=== PATIENT | female | born 1975 | race African-American/Black ===

== ENCOUNTER 2018-08-25 11:28 | Outpatient (CLI) | payer MEDICAID ==
--- NOTE | 2018-08-25 13:45 | RAD ---
KUB AND UPRIGHT: HISTORY: Left-sided abdominal pain. FINDINGS: The bowel gas pattern appears nonobstructed. No free air. No radiopaque calculi or any significant bony findings. IMPRESSION: No acute findings. POS: [facility]
== END 2018-08-25 11:29 | disposition home or self-care (01) ==
LOC: BICRAD 11:28
PROVIDERS: ATTEND Family Medicine
DX: R10.9 Unspecified abdominal pain (principal)
CPT/HCPCS: 74019

== ENCOUNTER 2019-09-25 12:02 | Outpatient (CLI) | payer OTHER | END 2019-09-25 12:03 | disposition home or self-care (01) | LOC: ULT 12:02 | PROVIDERS: ATTEND Internal Medicine | DX: I50.20 Unspecified systolic (congestive) heart failure (principal) | CPT/HCPCS: 93306 ==

== ENCOUNTER 2020-08-13 10:32 | Outpatient (CLI) | payer OTHER ==
--- NOTE | 2020-08-13 11:24 | MMO ---
Bilateral MAMMO Bilat Screen [facility]DI. CLINICAL HISTORY: Patient is 45 years old and is seen for screening. The patient has no family history of breast cancer. The patient has no personal history of cancer. VIEWS: The views performed were: bilateral craniocaudal and bilateral mediolateral oblique. FILMS COMPARED: The present examination has been compared to a prior imaging study performed at [facility] on 05/11/2019. This study has been interpreted with the assistance of computer-aided detection. MAMMOGRAM FINDINGS: There are scattered fibroglandular densities. There are no suspicious masses, suspicious calcifications, or new areas of architectural distortion. IMPRESSION: THERE IS NO MAMMOGRAPHIC EVIDENCE OF MALIGNANCY. A ROUTINE FOLLOW-UP MAMMOGRAM IN 1 YEAR IS RECOMMENDED. ACR BI-RADS Category 1 - Negative MAMMOGRAPHY NOTE: 1. A negative mammogram report should not delay a biopsy if a dominant of clinically suspicious mass is present. 2. Approximately 10% to 15% of breast cancers are not detected by mammography. 3. Adenosis and dense breasts may obscure an underlying neoplasm. Reported by: DHARMESH CARROLL MD Electonically Signed: [id number]
== END 2020-08-13 10:33 | disposition home or self-care (01) ==
LOC: BICMAMMO 10:32
PROVIDERS: ATTEND Family Medicine
DX: Z12.31 Encounter for screening mammogram for malignant neoplasm of breast (principal)
CPT/HCPCS: 77067

== ENCOUNTER 2020-08-13 10:41 | Outpatient (CLI) | payer OTHER ==
--- NOTE | 2020-08-13 11:48 | ULT ---
EXAM: Transabdominal and transvaginal pelvic ultrasound with Doppler PROVIDED CLINICAL HISTORY: Dysmenorrhea COMPARISON: None FINDINGS: The uterus measures approximately 9.7 x 5.7 x 4.1 cm and demonstrates a possible 1.8 cm anterior fibr oid, with an otherwise normal sonographic appearance. Uterine endometrial thickness is measurement. Right ovary measures approximately 2.9 x 2.8 x 2.4 cm and demonstrates a normal sonographic appearanc e. Left ovary measures approximately 2.5 x 2.1 x 1.9 cm and demonstrates a normal sonographic appearance . Grayscale and color Doppler sonography with spectral analysis of the ovarian waveforms demonstrates n ormal flow bilaterally. There is no evidence for free pelvic fluid. IMPRESSION: Possible small fibroid. Otherwise unremarkable study.
== END 2020-08-13 10:42 | disposition home or self-care (01) ==
LOC: BICULT 10:41
PROVIDERS: ATTEND Family Medicine
DX: N94.6 Dysmenorrhea, unspecified (principal); N93.9 Abnormal uterine and vaginal bleeding, unspecified
CPT/HCPCS: 76856

== ENCOUNTER 2021-01-29 07:29 | Day surgery (SDC) | payer OTHER ==
[2021-01-28 10:49] VITALS: BMI 38.4
[2021-01-29] MEDS ORDERED: Ketamine 50 MG/ML (10ML VIAL) ONE (09:49)
[2021-01-29] MEDS ORDERED: Glycopyrrolate 0.2 MG/ML 5 ML SYRINGE ONE (09:53)
[2021-01-29] MEDS ORDERED: Dexamethasone 20 MG/5 ML VIAL ONE (09:53)
[2021-01-29] MEDS ORDERED: PROPOFOL 200 MG/20 ML VIAL ONE (09:53)
[2021-01-29] MEDS ORDERED: Ondansetron PF 4 MG/2 ML Vial ONE (09:53)
[2021-01-29] MEDS ORDERED: Promethazine HCl 25 MG/ML VIAL ONE (10:11)
== END 2021-01-29 11:38 | disposition home or self-care (01) ==
LOC: SDC 07:29
PROVIDERS: ATTEND Internal Medicine
PROC: 0D748ZZ Dilation of Esophagogastric Junction, Via Natural or Artificial Opening Endoscopic (ICD-10-PCS; principal; 2021-01-29)
DX: K22.2 Esophageal obstruction (principal); K44.9 Diaphragmatic hernia without obstruction or gangrene; R68.81 Early satiety; I11.0 Hypertensive heart disease with heart failure; I50.9 Heart failure, unspecified; E11.9 Type 2 diabetes mellitus without complications; I25.2 Old myocardial infarction; E78.00 Pure hypercholesterolemia, unspecified; G47.30 Sleep apnea, unspecified; F17.210 Nicotine dependence, cigarettes, uncomplicated; E66.3 Overweight; Z68.39 Body mass index [BMI] 39.0-39.9, adult; Z79.4 Long term (current) use of insulin; Z79.82 Long term (current) use of aspirin; Z79.899 Other long term (current) drug therapy; Z86.73 Personal history of transient ischemic attack (TIA), and cerebral infarction without residual deficits; Z88.2 Allergy status to sulfonamides; Z95.5 Presence of coronary angioplasty implant and graft; Z95.810 Presence of automatic (implantable) cardiac defibrillator
CPT/HCPCS: J1100; J2405; J2550; J2704

== ENCOUNTER 2022-09-01 15:18 | Observation (INO) | payer OTHER ==
[2022-09-01 15:47] LABS: #Eosinphils 0.4 thou/uL (0.0-0.7); #Lymphocytes 2.9 thou/uL (1.20-3.40); #Monocytes 0.5 thou/uL (0.11-0.59); #Neutrophils 5.1 thou/uL (1.40-6.50); %Basophils 0.3 % (0.0-1.0); %Eosinophils 4.1 % (0.0-10.0); %Lymphocytes 32.5 % (21.0-51.0); %Monocytes 5.6 % (0.0-10.0); %Neutrophils 57.5 % (42.0-75.0); Hemoglobin 13.4 g/dL (12.0-16.0); Mean Corpuscular HGB CONC 34.1 g/dL (32.0-36.0); Mean Corpuscular Hemoglobin 30.8 pg (27.0-31.0); Mean Corpuscular Volume 90.2 fl (78.0-98.0); Mean Platelet Volume 7.7 fL (7.4-10.4); Platelet Count 337 10x3/uL (130-400); RBC Distribution Width 12.6 % (11.5-14.5); Red Blood Cell (RBC) Count 4.36 mill/uL (4.20-5.40); White Blood Cell (WBC) Count 8.9 10x3/uL (4.8-10.8)
[2022-09-01 16:09] LABS: ALT (SGPT) 11 U/L (8-55); AST (SGOT) 12 U/L (5-34); Alkaline Phosphatase 124 U/L (40-110); Anion Gap 14 mmol/L (10-20); BUN (Urea Nitrogen) 17 mg/dL (7.0-18.7); Bilirubin, Total 0.3 mg/dL (0.2-1.2); Calc. Creatinine Clearance 0 mL/min (70-130); Calcium 9.5 mg/dL (7.8-10.44); Carbon Dioxide 28 mmol/L (22-29); Chloride 102 mmol/L (98-107); Estimated GFR 64; Globulin 3.1 g/dL (2.4-3.5); Glucose 259 mg/dL (70-105); Lipase 48 U/L (8-78); Potassium 4.7 mmol/L (3.5-5.1); Protein, Total 7.1 g/dL (6.0-8.3); Sodium 139 mmol/L (136-145)
[2022-09-01] MEDS ORDERED: Nitroglycerin 0.4 MG TAB (25 Tab Bottle) SL PRN (19:04)
[2022-09-01] MEDS ORDERED: Ondansetron PF 4 MG/2 ML Vial IVP PRN (19:04)
[2022-09-01] MEDS ORDERED: Ondansetron ODT 4 MG TAB PO PRN (19:04)
[2022-09-01] MEDS ORDERED: HumaLOG 300 UNITS/3 ML VIAL SC PRN ×2 (19:04)
[2022-09-01] MEDS ORDERED: Acetaminophen 325 MG TAB PO PRN (19:04)
[2022-09-01] MEDS ORDERED: Dextrose 50% Abboject 50 ML SYRINGE SLOW IVP PRN (19:04)
[2022-09-01] MEDS ORDERED: Dextrose 5% in Water 1,000 ML IV PRN (19:04)
[2022-09-01 20:46] LABS: Troponin I 0.025 ng/mL (< 0.028)
[2022-09-01 20:49] VITALS: BMI 36.9
[2022-09-01 23:31] LABS: Troponin I 0.024 ng/mL (< 0.028)
[2022-09-02 04:03] LABS: #Basophils 0.1 thou/uL (0.0-0.2); #Eosinphils 0.4 thou/uL (0.0-0.7); #Lymphocytes 3.3 thou/uL (1.20-3.40); #Monocytes 0.7 thou/uL (0.11-0.59); #Neutrophils 6.4 thou/uL (1.40-6.50); %Basophils 1.2 % (0.0-1.0); %Eosinophils 3.2 % (0.0-10.0); %Lymphocytes 30.5 % (21.0-51.0); %Monocytes 6.1 % (0.0-10.0); %Neutrophils 58.9 % (42.0-75.0); Hemoglobin 13.5 g/dL (12.0-16.0); Mean Corpuscular HGB CONC 33.2 g/dL (32.0-36.0); Mean Corpuscular Hemoglobin 30.3 pg (27.0-31.0); Mean Corpuscular Volume 91.2 fl (78.0-98.0); Mean Platelet Volume 7.8 fL (7.4-10.4); Platelet Count 338 10x3/uL (130-400); RBC Distribution Width 12.6 % (11.5-14.5); Red Blood Cell (RBC) Count 4.46 mill/uL (4.20-5.40); White Blood Cell (WBC) Count 10.8 10x3/uL (4.8-10.8)
[2022-09-02 04:26] LABS: ALT (SGPT) 11 U/L (8-55); AST (SGOT) 12 U/L (5-34); Alkaline Phosphatase 120 U/L (40-110); Anion Gap 14 mmol/L (10-20); BUN (Urea Nitrogen) 16 mg/dL (7.0-18.7); Bilirubin, Total 0.3 mg/dL (0.2-1.2); Calc. Creatinine Clearance 91 mL/min (70-130); Calcium 9.6 mg/dL (7.8-10.44); Carbon Dioxide 27 mmol/L (22-29); Cardiac Risk 2.6 (Less than 4.5); Chloride 99 mmol/L (98-107); Cholesterol 118 mg/dl (< 200 Desired); Estimated GFR 61; Globulin 3.5 g/dL (2.4-3.5); Glucose 204 mg/dL (70-105); HDL Cholesterol 45 mg/dL (>60 Neg Risk); LDL Cholesterol, Calculated 34 mg/dL; Potassium 3.8 mmol/L (3.5-5.1); Protein, Total 7.5 g/dL (6.0-8.3); Sodium 136 mmol/L (136-145); Triglycerides 194 mg/dL (Less than 150)
[2022-09-02] MEDS ORDERED: Sodium Chloride 0.9% 1,000 ML IV SCH (05:15)
[2022-09-02] MEDS ORDERED: Aspirin Chewable 81 MG TAB PO SCH (09:00)
[2022-09-02] MEDS ORDERED: Sacubitril 49 MG/Valsartan 51 MG TABLET PO SCH (09:00)
[2022-09-02] MEDS ORDERED: Clopidogrel Bisulfate 75 MG TAB PO SCH (09:00)
[2022-09-02] MEDS ORDERED: Insulin Glargine 30 UNITS/0.3 ML VIAL SC SCH (09:00)
[2022-09-02] MEDS ORDERED: Regadenoson 0.4 MG/5 ML SYRINGE ONE (14:47)
[2022-09-02 17:11] VITALS: BP 119/70; TEMP 97.7
[2022-09-02] MEDS: Carvedilol 25 MG TAB PO SCH ×2 (17:13→18:46)
[2022-09-02] MEDS ORDERED: Atorvastatin Calcium 40 MG TAB PO SCH (21:00)
== END 2022-09-02 18:15 | disposition home or self-care (01) ==
LOC: ERS 15:18 → 2NO 18:24
PROVIDERS: ADMIT Internal Medicine; ATTEND Internal Medicine
DX: R07.9 Chest pain, unspecified (principal); E78.1 Pure hyperglyceridemia; I25.2 Old myocardial infarction; I25.10 Atherosclerotic heart disease of native coronary artery without angina pectoris; I11.0 Hypertensive heart disease with heart failure; I50.20 Unspecified systolic (congestive) heart failure; J44.9 Chronic obstructive pulmonary disease, unspecified; F12.10 Cannabis abuse, uncomplicated; F17.210 Nicotine dependence, cigarettes, uncomplicated; I25.5 Ischemic cardiomyopathy; E11.40 Type 2 diabetes mellitus with diabetic neuropathy, unspecified; E11.51 Type 2 diabetes mellitus with diabetic peripheral angiopathy without gangrene; Z86.73 Personal history of transient ischemic attack (TIA), and cerebral infarction without residual deficits; Z79.02 Long term (current) use of antithrombotics/antiplatelets; Z79.4 Long term (current) use of insulin; Z79.82 Long term (current) use of aspirin; Z79.899 Other long term (current) drug therapy; Z88.2 Allergy status to sulfonamides; Z95.5 Presence of coronary angioplasty implant and graft; Z95.810 Presence of automatic (implantable) cardiac defibrillator; Z89.422 Acquired absence of other left toe(s); Z20.822 Contact with and (suspected) exposure to COVID-19
CPT/HCPCS: 36415; 36416; 71045; 78452; 80053; 80061; 83690; 84484; 85025; 93005; 93017; 93306; A9500; G0378; J2785; J7050; U0003; U0005

== ENCOUNTER 2022-09-21 06:35 | Day surgery (SDC) | payer OTHER ==
[2022-09-17 15:59] VITALS: BMI 36.6
[2022-09-21] MEDS ORDERED: ePHEDrine 50 MG/ML VIAL ONE (08:58)
[2022-09-21] MEDS ORDERED: Glycopyrrolate 0.2 MG/ML 5 ML SYRINGE ONE (08:58)
[2022-09-21] MEDS ORDERED: Ondansetron PF 4 MG/2 ML Vial ONE (08:58)
[2022-09-21] MEDS ORDERED: Succinylcholine Chloride 100 MG/5 ML SYRINGE FS ONE (08:58)
[2022-09-21] MEDS ORDERED: PROPOFOL 200 MG/20 ML VIAL ONE (08:58)
[2022-09-21] MEDS ORDERED: Dexamethasone 20 MG/5 ML VIAL ONE (08:58)
== END 2022-09-21 11:14 | disposition home or self-care (01) ==
LOC: SDC 06:35
PROVIDERS: ATTEND Internal Medicine
PROC: 0DBN8ZX Excision of Sigmoid Colon, Via Natural or Artificial Opening Endoscopic, Diagnostic (ICD-10-PCS; principal; 2022-09-21)
PROC: 0D758ZZ Dilation of Esophagus, Via Natural or Artificial Opening Endoscopic (ICD-10-PCS; principal; 2022-09-21)
DX: D12.5 Benign neoplasm of sigmoid colon (principal); K59.02 Outlet dysfunction constipation; R13.10 Dysphagia, unspecified; K21.9 Gastro-esophageal reflux disease without esophagitis; E11.43 Type 2 diabetes mellitus with diabetic autonomic (poly)neuropathy; K31.84 Gastroparesis; I11.0 Hypertensive heart disease with heart failure; I50.9 Heart failure, unspecified; I25.2 Old myocardial infarction; E78.00 Pure hypercholesterolemia, unspecified; F17.210 Nicotine dependence, cigarettes, uncomplicated; E66.3 Overweight; Z68.38 Body mass index [BMI] 38.0-38.9, adult; Z86.73 Personal history of transient ischemic attack (TIA), and cerebral infarction without residual deficits; Z79.02 Long term (current) use of antithrombotics/antiplatelets; Z79.4 Long term (current) use of insulin; Z79.82 Long term (current) use of aspirin; Z79.85 Long-term (current) use of injectable non-insulin antidiabetic drugs; Z79.899 Other long term (current) drug therapy; Z88.2 Allergy status to sulfonamides; Z95.5 Presence of coronary angioplasty implant and graft; Z95.810 Presence of automatic (implantable) cardiac defibrillator
CPT/HCPCS: 36416; 88305; J1100; J2405; J2704; J3490

== ENCOUNTER 2023-06-04 03:59 | Inpatient (IN) | payer OTHER ==
[2023-06-04 05:20] LABS: #Eosinphils 0.2 thou/uL (0.0-0.7); #Monocytes 0.6 thou/uL (0.11-0.59); #Neutrophils 8.2 thou/uL (1.40-6.50); %Basophils 0.4 % (0.0-1.0); %Eosinophils 2.1 % (0.0-10.0); %Lymphocytes 17.5 % (21.0-51.0); %Neutrophils 74.7 % (42.0-75.0); Hematocrit 35.6 % (36.0-47.0); Hemoglobin 11.2 g/dL (12.0-16.0); Mean Corpuscular HGB CONC 31.5 g/dL (32.0-36.0); Mean Corpuscular Volume 85.8 fl (78.0-98.0); Mean Platelet Volume 9.9 fL (7.4-10.4); Platelet Count 327 10x3/uL (130-400); RBC Distribution Width 15.4 % (11.5-14.5); Red Blood Cell (RBC) Count 4.15 mill/uL (4.20-5.40)
[2023-06-04] MEDS ORDERED: Ketorolac Tromethamine 30 MG/ML VIAL ONE (05:26)
[2023-06-04 05:43] LABS: ALT (SGPT) 7 U/L (8-55); AST (SGOT) 12 U/L (5-34); Albumin 4.1 g/dL (3.5-5.0); Alkaline Phosphatase 101 U/L (40-110); Anion Gap 14 mmol/L (10-20); BUN (Urea Nitrogen) 13 mg/dL (7.0-18.7); Bilirubin, Total 0.3 mg/dL (0.2-1.2); Calc. Creatinine Clearance 0 mL/min (70-130); Calcium 8.9 mg/dL (7.8-10.44); Carbon Dioxide 20 mmol/L (22-29); Chloride 103 mmol/L (98-107); Estimated GFR 71; Globulin 2.7 g/dL (2.4-3.5); Glucose 312 mg/dL (70-105); Potassium 3.7 mmol/L (3.5-5.1); Protein, Total 6.8 g/dL (6.0-8.3); Sodium 133 mmol/L (136-145)
[2023-06-04 05:47] LABS: Troponin I 0.108 ng/mL (< 0.028)
[2023-06-04] MEDS ORDERED: Aspirin Chewable 81 MG TAB ONE (06:13)
[2023-06-04] MEDS ORDERED: Ondansetron PF 4 MG/2 ML Vial IVP PRN (06:55)
[2023-06-04] MEDS ORDERED: Ondansetron ODT 4 MG TAB PO PRN (06:55)
[2023-06-04] MEDS ORDERED: Acetaminophen 325 MG TAB PO PRN (07:49)
[2023-06-04] MEDS ORDERED: Dextrose 50% Abboject 50 ML SYRINGE SLOW IVP PRN (07:49)
[2023-06-04] MEDS ORDERED: Glucagon 1 MG/ML KIT IM PRN (07:49)
[2023-06-04] MEDS ORDERED: Nitroglycerin 0.4 MG TAB (25 Tab Bottle) SL PRN (07:49)
[2023-06-04] MEDS ORDERED: Dextrose 5% in Water 1,000 ML IV PRN (07:49)
[2023-06-04] MEDS ORDERED: Famotidine 20 MG TAB ONE (09:00)
[2023-06-04] MEDS ORDERED: Clopidogrel Bisulfate 75 MG TAB PO SCH (09:00)
[2023-06-04] MEDS ORDERED: Clopidogrel Bisulfate 75 MG TAB ONE (09:00)
[2023-06-04] MEDS ORDERED: Carvedilol 6.25 MG TAB ONE (09:00)
[2023-06-04] MEDS: Carvedilol 6.25 MG TAB PO SCH ×2 (09:04→17:53)
[2023-06-04] MEDS: Famotidine 20 MG TAB PO SCH ×2 (09:05→21:46)
[2023-06-04 09:18] LABS: Troponin I 0.157 ng/mL (< 0.028)
[2023-06-04] MEDS ORDERED: Sacubitril 49 MG/Valsartan 51 MG TABLET PO SCH (22:00)
[2023-06-05 05:06] LABS: #Eosinphils 0.3 thou/uL (0.0-0.7); #Monocytes 0.6 thou/uL (0.11-0.59); #Neutrophils 4.7 thou/uL (1.40-6.50); %Basophils 0.2 % (0.0-1.0); %Eosinophils 3.5 % (0.0-10.0); %Lymphocytes 36.7 % (21.0-51.0); %Monocytes 6.6 % (0.0-10.0); %Neutrophils 52.8 % (42.0-75.0); Hematocrit 36.3 % (36.0-47.0); Hemoglobin 11.1 g/dL (12.0-16.0); Mean Corpuscular HGB CONC 30.6 g/dL (32.0-36.0); Mean Corpuscular Hemoglobin 26.1 pg (27.0-31.0); Mean Corpuscular Volume 85.2 fl (78.0-98.0); Mean Platelet Volume 10.2 fL (7.4-10.4); Platelet Count 321 10x3/uL (130-400); RBC Distribution Width 15.4 % (11.5-14.5); Red Blood Cell (RBC) Count 4.26 mill/uL (4.20-5.40); White Blood Cell (WBC) Count 8.8 10x3/uL (4.8-10.8)
[2023-06-05 05:45] LABS: Anion Gap 13 mmol/L (10-20); BUN (Urea Nitrogen) 17 mg/dL (7.0-18.7); Calc. Creatinine Clearance 107 mL/min (70-130); Carbon Dioxide 25 mmol/L (22-29); Chloride 104 mmol/L (98-107); Estimated GFR 70; Glucose 163 mg/dL (70-105); Potassium 3.5 mmol/L (3.5-5.1); Sodium 138 mmol/L (136-145)
[2023-06-05] MEDS ORDERED: Communication Order-Pharmacy FS SCH (09:30)
[2023-06-05] MEDS: Sacubitril 49 MG/Valsartan 51 MG TABLET PO SCH ×2 (10:01→21:35)
[2023-06-05] MEDS: Aspirin Chewable 81 MG TAB PO SCH (10:01)
[2023-06-05] MEDS: Empagliflozin 25 MG TAB PO SCH (10:01)
[2023-06-05] MEDS: Carvedilol 6.25 MG TAB PO SCH ×2 (10:13→16:08)
[2023-06-05] MEDS: Famotidine 20 MG TAB PO SCH ×2 (10:14→21:36)
[2023-06-05] MEDS: Insulin Regular 300 UNITS/3 ML VIAL SC PRN ×2 (15:58→21:37)
[2023-06-05] MEDS: Bumetanide 1 MG TAB PO SCH (16:08)
[2023-06-05] MEDS ORDERED: Non-Formulary Item 1 EACH (Carvedilol [Coreg] 12.5 MG Tab) PO SCH (17:00)
[2023-06-05] MEDS ORDERED: Non-Formulary Item 1 EACH (Potassium Chloride [Potassium Chloride] 20 MEQ Tablet.Er) PO SCH (21:00)
[2023-06-05] MEDS ORDERED: BUMETANIDE PO SCH (21:00)
[2023-06-05] MEDS: Potassium Chloride 20 MEQ TAB PO SCH (21:36)
[2023-06-05] MEDS: Atorvastatin Calcium 40 MG TAB PO SCH (21:36)
[2023-06-05] MEDS: Gabapentin 100 MG CAP PO SCH (21:37)
[2023-06-06] MEDS: Sacubitril 49 MG/Valsartan 51 MG TABLET PO SCH ×2 (08:00→20:58)
[2023-06-06] MEDS: Spironolactone 25 MG TAB PO SCH (08:00)
[2023-06-06] MEDS: Potassium Chloride 20 MEQ TAB PO SCH ×2 (08:00→20:58)
[2023-06-06] MEDS: Empagliflozin 25 MG TAB PO SCH (08:00)
[2023-06-06] MEDS: Bumetanide 1 MG TAB PO SCH ×2 (08:00→16:11)
[2023-06-06] MEDS: Aspirin Chewable 81 MG TAB PO SCH (08:00)
[2023-06-06] MEDS: Famotidine 20 MG TAB PO SCH ×2 (08:00→20:58)
[2023-06-06] MEDS: Carvedilol 6.25 MG TAB PO SCH ×2 (08:00→16:11)
[2023-06-06 10:56] LABS: #Eosinphils 0.2 thou/uL (0.0-0.7); #Monocytes 0.4 thou/uL (0.11-0.59); #Neutrophils 4.3 thou/uL (1.40-6.50); %Basophils 0.4 % (0.0-1.0); %Eosinophils 2.5 % (0.0-10.0); %Lymphocytes 31.7 % (21.0-51.0); %Monocytes 5.9 % (0.0-10.0); %Neutrophils 59.2 % (42.0-75.0); Hematocrit 36.9 % (36.0-47.0); Hemoglobin 11.6 g/dL (12.0-16.0); Mean Corpuscular HGB CONC 31.4 g/dL (32.0-36.0); Mean Corpuscular Hemoglobin 26.6 pg (27.0-31.0); Mean Corpuscular Volume 84.6 fl (78.0-98.0); Platelet Count 349 10x3/uL (130-400); RBC Distribution Width 15.2 % (11.5-14.5); Red Blood Cell (RBC) Count 4.36 mill/uL (4.20-5.40); White Blood Cell (WBC) Count 7.3 10x3/uL (4.8-10.8)
[2023-06-06 11:24] LABS: Anion Gap 15 mmol/L (10-20); BUN (Urea Nitrogen) 16 mg/dL (7.0-18.7); Calc. Creatinine Clearance 126 mL/min (70-130); Calcium 8.8 mg/dL (7.8-10.44); Carbon Dioxide 23 mmol/L (22-29); Chloride 104 mmol/L (98-107); Estimated GFR 84; Glucose 151 mg/dL (70-105); Magnesium 2.2 mg/dL (1.6-2.6); Potassium 3.9 mmol/L (3.5-5.1); Sodium 138 mmol/L (136-145)
[2023-06-06] MEDS ORDERED: Lidocaine 1% (PF) 30 ML VIAL ONE (11:29)
[2023-06-06] MEDS ORDERED: Heparin 10,000 UNITS/ 10 ML VIAL ONE (11:29)
[2023-06-06] MEDS ORDERED: Adenosine 6 MG/2 ML VIAL ONE (11:35)
[2023-06-06] MEDS ORDERED: Verapamil 5 MG/2 ML VIAL ONE (11:36)
[2023-06-06] MEDS ORDERED: Nitroglycerin 50 MG/250 ML BOT 0 ML ONE (11:36)
[2023-06-06] MEDS ORDERED: fentaNYL 50 mcg/mL 1 mL Vial ONE (12:16)
[2023-06-06] MEDS ORDERED: Midazolam HCl 2 mg/2 ml Vial ONE (12:16)
[2023-06-06] MEDS ORDERED: Nitroglycerin 0.4 MG TAB (25 Tab Bottle) SL PRN (14:38)
[2023-06-06] MEDS ORDERED: Acetaminophen/Codeine 30-300mg Tablet PO PRN ×2 (14:38)
[2023-06-06] MEDS ORDERED: Sodium Chloride 0.9% 1,000 ML IV SCH (14:38)
[2023-06-06] MEDS ORDERED: Sodium Chloride 0.9% 200 ML IV PRN (14:38)
[2023-06-06] MEDS: Atorvastatin Calcium 40 MG TAB PO SCH (20:58)
[2023-06-06] MEDS: Gabapentin 100 MG CAP PO SCH (20:58)
[2023-06-07] MEDS: Bumetanide 1 MG TAB PO SCH ×2 (09:55→15:59)
[2023-06-07] MEDS: Spironolactone 25 MG TAB PO SCH (09:56)
[2023-06-07] MEDS: Sacubitril 49 MG/Valsartan 51 MG TABLET PO SCH ×2 (09:56→21:59)
[2023-06-07] MEDS: Potassium Chloride 20 MEQ TAB PO SCH ×2 (09:56→22:00)
[2023-06-07] MEDS: Empagliflozin 25 MG TAB PO SCH (09:57)
[2023-06-07] MEDS: Aspirin Chewable 81 MG TAB PO SCH (09:57)
[2023-06-07] MEDS: Famotidine 20 MG TAB PO SCH ×2 (09:57→21:59)
[2023-06-07] MEDS: Carvedilol 6.25 MG TAB PO SCH ×2 (09:58→16:50)
[2023-06-07] MEDS: Insulin Regular 300 UNITS/3 ML VIAL SC PRN ×2 (16:51→22:21)
[2023-06-07] MEDS: Atorvastatin Calcium 40 MG TAB PO SCH (21:59)
[2023-06-07] MEDS: Gabapentin 100 MG CAP PO SCH (22:00)
[2023-06-08] MEDS: Insulin Regular 300 UNITS/3 ML VIAL SC PRN ×4 (06:06→21:17)
[2023-06-08] MEDS: Bumetanide 1 MG TAB PO SCH ×2 (09:18→16:33)
[2023-06-08] MEDS: Famotidine 20 MG TAB PO SCH ×2 (09:18→20:17)
[2023-06-08] MEDS: Spironolactone 25 MG TAB PO SCH (09:18)
[2023-06-08] MEDS: Potassium Chloride 20 MEQ TAB PO SCH ×2 (09:18→20:17)
[2023-06-08] MEDS: Empagliflozin 25 MG TAB PO SCH (09:18)
[2023-06-08] MEDS: Sacubitril 49 MG/Valsartan 51 MG TABLET PO SCH ×2 (09:19→20:17)
[2023-06-08] MEDS: Aspirin Chewable 81 MG TAB PO SCH (09:19)
[2023-06-08] MEDS: Carvedilol 6.25 MG TAB PO SCH ×2 (09:19→16:32)
[2023-06-08] MEDS ORDERED: Zolpidem Tartrate 5 MG TAB PO PRN (20:11)
[2023-06-08] MEDS ORDERED: Lorazepam 0.5 MG TAB PO PRN (20:12)
[2023-06-08] MEDS: Atorvastatin Calcium 40 MG TAB PO SCH (20:17)
[2023-06-08] MEDS: Gabapentin 100 MG CAP PO SCH (20:25)
[2023-06-09] MEDS: Insulin Regular 300 UNITS/3 ML VIAL SC PRN ×3 (05:22→20:53)
[2023-06-09] MEDS ORDERED: Communication Order-Pharmacy FS ONE (05:56)
[2023-06-09] MEDS: Carvedilol 6.25 MG TAB PO SCH ×2 (09:02→16:45)
[2023-06-09] MEDS: Sacubitril 24MG/Valsartan 26 MG TAB PO SCH ×2 (09:02→20:52)
[2023-06-09] MEDS: Bumetanide 1 MG TAB PO SCH (09:02)
[2023-06-09] MEDS ORDERED: Communication Order-Pharmacy FS SCH (17:45)
[2023-06-09] MEDS ORDERED: Gabapentin 100 MG CAP PO SCH (21:00)
[2023-06-09] MEDS ORDERED: Famotidine 20 MG TAB PO SCH (21:00)
[2023-06-09] MEDS ORDERED: Atorvastatin Calcium 40 MG TAB PO SCH (21:00)
[2023-06-10] MEDS ORDERED: CEFAZOLIN 2 GM in Sodium Chloride 0.9% 100 ML IVPB SCH (03:45)
[2023-06-10 04:41] LABS: #Eosinphils 0.2 thou/uL (0.0-0.7); #Monocytes 0.7 thou/uL (0.11-0.59); #Neutrophils 4.7 thou/uL (1.40-6.50); %Basophils 0.4 % (0.0-1.0); %Eosinophils 2.2 % (0.0-10.0); %Lymphocytes 31.9 % (21.0-51.0); %Monocytes 8.4 % (0.0-10.0); %Neutrophils 56.9 % (42.0-75.0); Hematocrit 36.5 % (36.0-47.0); Hemoglobin 11.2 g/dL (12.0-16.0); Mean Corpuscular HGB CONC 30.7 g/dL (32.0-36.0); Mean Corpuscular Hemoglobin 26.4 pg (27.0-31.0); Mean Corpuscular Volume 86.1 fl (78.0-98.0); Mean Platelet Volume 10.2 fL (7.4-10.4); Platelet Count 300 10x3/uL (130-400); RBC Distribution Width 15.6 % (11.5-14.5); Red Blood Cell (RBC) Count 4.24 mill/uL (4.20-5.40); White Blood Cell (WBC) Count 8.3 10x3/uL (4.8-10.8)
[2023-06-10] MEDS: Carvedilol 6.25 MG TAB PO SCH (05:02)
[2023-06-10] MEDS: Sacubitril 24MG/Valsartan 26 MG TAB PO SCH (05:02)
[2023-06-10 05:13] LABS: ALT (SGPT) 18 U/L (8-55); AST (SGOT) 14 U/L (5-34); Albumin 3.8 g/dL (3.5-5.0); Alkaline Phosphatase 92 U/L (40-110); Anion Gap 13 mmol/L (10-20); BUN (Urea Nitrogen) 23 mg/dL (7.0-18.7); Bilirubin, Total 0.5 mg/dL (0.2-1.2); Calc. Creatinine Clearance 95 mL/min (70-130); Calcium 8.6 mg/dL (7.8-10.44); Carbon Dioxide 26 mmol/L (22-29); Cardiac Risk 3.3 (Less than 4.5); Chloride 102 mmol/L (98-107); Cholesterol 87 mg/dl (< 200 Desired); Estimated GFR 65; Globulin 2.8 g/dL (2.4-3.5); Glucose 171 mg/dL (70-105); HDL Cholesterol 26 mg/dL (>60 Neg Risk); LDL Cholesterol, Calculated 40 mg/dL; Potassium 4.1 mmol/L (3.5-5.1); Protein, Total 6.6 g/dL (6.0-8.3); Sodium 137 mmol/L (136-145); Triglycerides 106 mg/dL (Less than 150)
[2023-06-10] MEDS ORDERED: Albumin 5% 0 ML ONE (06:42)
[2023-06-10] MEDS ORDERED: Lidocaine 1% MPF 2 ML VIAL ONE (09:15)
[2023-06-10] MEDS ORDERED: Norepinephrine 4 MG/4 ML VIAL ONE (09:19)
[2023-06-10] MEDS ORDERED: Lidocaine 2% PF 100 mg/5 ml Syringe ONE ×2 (09:19→09:53)
[2023-06-10] MEDS ORDERED: fentaNYL PF 100 MCG/2 ML SYRINGE ONE (09:19)
[2023-06-10] MEDS ORDERED: PROPOFOL 20 ML ONE (09:19)
[2023-06-10] MEDS ORDERED: Rocuronium Bromide 10 MG/ML (10ML VIAL) ONE ×2 (09:19→09:53)
[2023-06-10] MEDS ORDERED: Dexmedetomidine 200 MCG/2 ML VIAL ONE (09:29)
[2023-06-10] MEDS ORDERED: Midazolam HCl 2 mg/2 ml Vial ONE (09:36)
[2023-06-10] MEDS ORDERED: Milrinone 10 MG/10 ML VIAL ONE (09:43)
[2023-06-10] MEDS ORDERED: Heparin 5,000 UNITS/ML VIAL ONE (09:53)
[2023-06-10] MEDS ORDERED: Mannitol 12.5 GM/50 ML ONE (09:53)
[2023-06-10] MEDS ORDERED: Heparin 30,000 units/30 ml VIAL ONE (09:53)
[2023-06-10] MEDS ORDERED: Potassium Chloride 60 MEQ/30 ML VIAL ONE (09:53)
[2023-06-10] MEDS ORDERED: Aminocaproic Acid 5 GM/20 ML VIAL ONE (09:53)
[2023-06-10] MEDS ORDERED: Magnesium 5 GM/10 ML VIAL ONE (09:53)
[2023-06-10] MEDS ORDERED: Protamine Sulfate 250 MG/25 ML VIAL ONE (09:53)
[2023-06-10] MEDS ORDERED: Calcium Chloride 1 GM/10 ML Abboject SYRINGE ONE (09:53)
[2023-06-10] MEDS ORDERED: Vancomycin 1 GM VIAL ONE (09:53)
[2023-06-10] MEDS ORDERED: Lidocaine 1% PF 5 ML VIAL ONE (09:53)
[2023-06-10] MEDS ORDERED: Thrombin 5000 UNITS/5 ML VIAL ONE (09:53)
[2023-06-10] MEDS ORDERED: Papaverine 60 MG/2 ML VIAL ONE (09:53)
[2023-06-10] MEDS ORDERED: Cardioplegic Soln 1,000 ML BAG ONE (09:53)
[2023-06-10] MEDS ORDERED: PROPOFOL 200 MG/20 ML VIAL ONE (09:53)
[2023-06-10] MEDS ORDERED: Sodium Bicarb 50 MEQ/50 ML VIAL ONE (09:53)
[2023-06-10] MEDS ORDERED: Insulin Regular 300 UNITS/3 ML VIAL ONE (11:37)
[2023-06-10] MEDS ORDERED: Sevoflurane 250 ML INH ANEST BOTTLE ONE (13:13)
[2023-06-10] MEDS ORDERED: Albumin 5% 500 ML ONE (13:34)
[2023-06-10] MEDS ORDERED: Bisacodyl 10 MG SUPP PR PRN (14:02)
[2023-06-10] MEDS ORDERED: Post-Op Insulin Drip Protocol IVPB ONE (14:02)
[2023-06-10] MEDS ORDERED: Mag-Al 1200 mg/1200 mg/30 ML UDCUP PO PRN (14:02)
[2023-06-10] MEDS ORDERED: Promethazine HCl 25 MG/ML VIAL IM PRN (14:02)
[2023-06-10] MEDS ORDERED: niCARdipine 25 MG in Sodium Chloride 0.9% 250 ML 250 ML IVPB PRN (14:02)
[2023-06-10] MEDS ORDERED: Hetastarch 6% 500 ML 500 ML IVPB PRN (14:02)
[2023-06-10] MEDS ORDERED: fentaNYL 50 mcg/mL 1 mL Vial SLOW IVP PRN (14:02)
[2023-06-10] MEDS ORDERED: DOPamine 400 MG/D5W 250 ML 250 ML IVPB PRN (14:02)
[2023-06-10] MEDS ORDERED: Morphine 2 MG/ML VIAL SLOW IVP PRN (14:02)
[2023-06-10] MEDS ORDERED: Ipratropium/Albuterol 3 ML NEB NEB PRN (14:02)
[2023-06-10] MEDS ORDERED: Nitroglycerin 50 MG/250 ML BOT 250 ML IVPB PRN (14:02)
[2023-06-10] MEDS ORDERED: Acetaminophen 325 MG TAB PO PRN (14:02)
[2023-06-10] MEDS ORDERED: Dextrose 5% in Water 1,000 ML IV PRN (14:15)
[2023-06-10] MEDS ORDERED: Insulin Regular 300 UNITS/3 ML VIAL SC PRN (14:15)
[2023-06-10] MEDS ORDERED: Glucagon 1 MG/ML KIT SC PRN (14:15)
[2023-06-10] MEDS ORDERED: Dextrose 50% Abboject 50 ML SYRINGE SLOW IVP PRN (14:15)
[2023-06-10] MEDS ORDERED: HUMULIN R 100 UNITS in Sodium Chloride 0.9% 100 ML IVPB SCH (14:15)
[2023-06-10 14:26] LABS: Actual Bicarbonate (HCO3a) 20.5 mEq/L (22-28); Base Excess (BEa) -4.3 mEq/L (-2.0 to +3.0); CO2 Tension 36.7 mmHg (35.0-45.0); Calcium, Ionized (arterial) 1.11 mmol/L (1.12-1.30); Carboxyhemoglobin (COHb) 0.1 gm% (0.0-3.0); Hematocrit-ABG 29 % (36.0-47.0); Hemoglobin (Hb) 9.9 g/dL (12.0-16.0); O2 Tension (PaO2), arterial 99.8 mmHg (80.0-100.0); Potassium - ABG Lab 3.76 mmol/L (3.70-5.30); pH, Arterial 7.366 (7.35-7.45)
[2023-06-10 14:29] LABS: ALV-art Gradient 210.825 mmHg (0-20); Puncture Site Arterial Line
[2023-06-10] MEDS: Lactated Ringer's 1,000 ML IV SCH (14:31)
[2023-06-10 14:41] LABS: Hematocrit 28.8 % (36.0-47.0); Mean Corpuscular HGB CONC 31.3 g/dL (32.0-36.0); Mean Corpuscular Hemoglobin 26.9 pg (27.0-31.0); Mean Corpuscular Volume 86.2 fl (78.0-98.0); Platelet Count 244 10x3/uL (130-400); RBC Distribution Width 15.4 % (11.5-14.5); Red Blood Cell (RBC) Count 3.34 mill/uL (4.20-5.40); White Blood Cell (WBC) Count 16.1 10x3/uL (4.8-10.8)
[2023-06-10] MEDS: fentaNYL 50 mcg/mL 1 mL Vial SLOW IVP PRN ×4 (14:53→21:59)
[2023-06-10 15:02] LABS: Anion Gap 12 mmol/L (10-20); BUN (Urea Nitrogen) 18 mg/dL (7.0-18.7); Calc. Creatinine Clearance 116 mL/min (70-130); Calcium 7.6 mg/dL (7.8-10.44); Carbon Dioxide 22 mmol/L (22-29); Chloride 111 mmol/L (98-107); Estimated GFR 82; Glucose 98 mg/dL (70-105); Potassium 3.8 mmol/L (3.5-5.1); Sodium 141 mmol/L (136-145)
[2023-06-10 15:03] LABS: Delete Auto Diff?? YES
[2023-06-10 15:04] LABS: Manual Diff?? YES
[2023-06-10] MEDS: Potassium Chloride 20 MEQ/100 ML PREMIX BAG IVPB PRN (15:15)
[2023-06-10 15:21] LABS: INR-International Normal Ratio 1.2; PTT 34.1 sec (22.9-36.1)
[2023-06-10 15:39] LABS: Band 11 % (5-11); Eosinophils 5 % (0-10); Lymphocytes 11 % (21-51); Monocytes 2 % (0-10); Neutrophil 71 % (42-75); Platelet Adequacy Comment Platelets Normal; RBC Morphology Within Normal Limits; Smudge Cells 2.9 %; Total Cell Count 105
[2023-06-10] MEDS: CEFAZOLIN 2 GM in Sodium Chloride 0.9% 100 ML IVPB SCH ×2 (16:35→23:58)
[2023-06-10 16:52] LABS: Actual Bicarbonate (HCO3a) 20.1 mEq/L (22-28); Base Excess (BEa) -4.1 mEq/L (-2.0 to +3.0); CO2 Tension 33.6 mmHg (35.0-45.0); Carboxyhemoglobin (COHb) 0.5 gm% (0.0-3.0); Hematocrit-ABG 33 % (36.0-47.0); Hemoglobin (Hb) 11.2 g/dL (12.0-16.0); Potassium - ABG Lab 4.41 mmol/L (3.70-5.30); pH, Arterial 7.395 (7.35-7.45)
[2023-06-10 16:56] LABS: Puncture Site Arterial Line
[2023-06-10] MEDS: Ketorolac Tromethamine 30 MG/ML VIAL IVP SCH ×2 (17:17→23:58)
[2023-06-10] MEDS: NOREPINEPHRINE 8 MG/250 ML-D5W 250 ML IVPB PRN (17:20)
[2023-06-10] MEDS: Ipratropium/Albuterol 3 ML NEB NEB SCH ×2 (19:01→23:11)
[2023-06-10] MEDS: HYDROcodone/Acetaminophen 5/325 mg Tablet PO PRN (19:20)
[2023-06-10 19:57] LABS: Hematocrit 31.2 % (36.0-47.0); Hemoglobin 9.8 g/dL (12.0-16.0)
[2023-06-10] MEDS: Famotidine/PF 20 mg/2ml Vial SLOW IVP SCH (20:19)
[2023-06-10 20:22] LABS: Potassium 4.1 mmol/L (3.5-5.1)
[2023-06-10] MEDS ORDERED: Atorvastatin Calcium 20 MG TAB PO SCH (21:00)
[2023-06-11] MEDS: HYDROcodone/Acetaminophen 5/325 mg Tablet PO PRN ×4 (02:01→20:42)
[2023-06-11] MEDS: fentaNYL 50 mcg/mL 1 mL Vial SLOW IVP PRN (03:03)
[2023-06-11] MEDS: Lactated Ringer's 1,000 ML IV SCH ×2 (03:30→05:46)
[2023-06-11 04:37] LABS: #Monocytes 0.9 thou/uL (0.11-0.59); #Neutrophils 11.7 thou/uL (1.40-6.50); %Basophils 0.3 % (0.0-1.0); %Eosinophils 0.2 % (0.0-10.0); %Lymphocytes 15.1 % (21.0-51.0); %Monocytes 6.2 % (0.0-10.0); %Neutrophils 77.9 % (42.0-75.0); Hematocrit 27.9 % (36.0-47.0); Hemoglobin 8.7 g/dL (12.0-16.0); Mean Corpuscular HGB CONC 31.2 g/dL (32.0-36.0); Mean Corpuscular Hemoglobin 27.4 pg (27.0-31.0); Mean Corpuscular Volume 87.7 fl (78.0-98.0); Mean Platelet Volume 10.5 fL (7.4-10.4); Platelet Count 240 10x3/uL (130-400); RBC Distribution Width 15.7 % (11.5-14.5); Red Blood Cell (RBC) Count 3.18 mill/uL (4.20-5.40)
[2023-06-11 04:59] LABS: Anion Gap 13 mmol/L (10-20); BUN (Urea Nitrogen) 21 mg/dL (7.0-18.7); Calc. Creatinine Clearance 96 mL/min (70-130); Calcium 7.6 mg/dL (7.8-10.44); Carbon Dioxide 21 mmol/L (22-29); Chloride 106 mmol/L (98-107); Estimated GFR 66; Glucose 104 mg/dL (70-105); Potassium 3.9 mmol/L (3.5-5.1); Sodium 136 mmol/L (136-145)
[2023-06-11] MEDS: Potassium Chloride 20 MEQ/100 ML PREMIX BAG IVPB PRN (05:37)
[2023-06-11] MEDS: Ketorolac Tromethamine 30 MG/ML VIAL IVP SCH ×4 (06:32→23:04)
[2023-06-11] MEDS: Ipratropium/Albuterol 3 ML NEB NEB SCH ×4 (07:08→23:27)
[2023-06-11] MEDS: Aspirin 325 MG TAB PO SCH (08:15)
[2023-06-11] MEDS: Famotidine/PF 20 mg/2ml Vial SLOW IVP SCH (08:16)
[2023-06-11] MEDS: CEFAZOLIN 2 GM in Sodium Chloride 0.9% 100 ML IVPB SCH (08:17)
[2023-06-11] MEDS: Polyethylene Glycol 3350 17 GM Packet PO SCH (08:34)
[2023-06-11] MEDS ORDERED: Dextrose 50% Abboject 50 ML SYRINGE SLOW IVP PRN (10:34)
[2023-06-11] MEDS ORDERED: Glucagon 1 MG/ML KIT IM PRN (10:34)
[2023-06-11] MEDS ORDERED: Dextrose 5% in Water 1,000 ML IV PRN (10:34)
[2023-06-11] MEDS ORDERED: Insulin Glargine 30 UNITS/0.3 ML VIAL SC PRN (14:13)
[2023-06-11] MEDS: HumaLOG 300 UNITS/3 ML VIAL SC PRN ×2 (17:21→20:50)
[2023-06-11] MEDS: Atorvastatin Calcium 40 MG TAB PO SCH (20:45)
[2023-06-11] MEDS: Insulin Glargine 30 UNITS/0.3 ML VIAL SC SCH (20:50)
[2023-06-11] MEDS: Ondansetron PF 4 MG/2 ML Vial IVP PRN (23:04)
[2023-06-12] MEDS: NOREPINEPHRINE 8 MG/250 ML-D5W 250 ML IVPB PRN (01:09)
[2023-06-12] MEDS: Ketorolac Tromethamine 30 MG/ML VIAL IVP SCH ×4 (06:30→23:05)
[2023-06-12] MEDS: Ipratropium/Albuterol 3 ML NEB NEB SCH ×4 (07:12→23:41)
[2023-06-12] MEDS: Polyethylene Glycol 3350 17 GM Packet PO SCH (08:52)
[2023-06-12] MEDS: Aspirin 325 MG TAB PO SCH (08:58)
[2023-06-12] MEDS: HumaLOG 300 UNITS/3 ML VIAL SC PRN ×3 (11:45→20:28)
[2023-06-12] MEDS: HYDROcodone/Acetaminophen 5/325 mg Tablet PO PRN ×2 (12:36→17:43)
[2023-06-12] MEDS: fentaNYL 50 mcg/mL 1 mL Vial SLOW IVP PRN (13:01)
[2023-06-12 16:48] VITALS: BMI 39.9
[2023-06-12] MEDS: Atorvastatin Calcium 40 MG TAB PO SCH (20:24)
[2023-06-12] MEDS: Insulin Glargine 30 UNITS/0.3 ML VIAL SC SCH (20:25)
[2023-06-13] MEDS: Ondansetron PF 4 MG/2 ML Vial IVP PRN (02:15)
[2023-06-13] MEDS: HYDROcodone/Acetaminophen 5/325 mg Tablet PO PRN ×3 (02:42→21:19)
[2023-06-13 04:48] LABS: Hematocrit 24.2 % (36.0-47.0); Hemoglobin 7.4 g/dL (12.0-16.0); Mean Corpuscular Volume 87.4 fl (78.0-98.0); Red Blood Cell (RBC) Count 2.77 mill/uL (4.20-5.40); White Blood Cell (WBC) Count 13.2 10x3/uL (4.8-10.8)
[2023-06-13 04:49] LABS: #Eosinphils 0.2 thou/uL (0.0-0.7); #Neutrophils 10.8 thou/uL (1.40-6.50); %Basophils 0.2 % (0.0-1.0); %Eosinophils 1.1 % (0.0-10.0); %Monocytes 7.3 % (0.0-10.0); %Neutrophils 81.7 % (42.0-75.0); Mean Corpuscular HGB CONC 30.6 g/dL (32.0-36.0); Mean Corpuscular Hemoglobin 26.7 pg (27.0-31.0); Mean Platelet Volume 10.6 fL (7.4-10.4); Platelet Count 225 10x3/uL (130-400); RBC Distribution Width 16.1 % (11.5-14.5)
[2023-06-13] MEDS: Ketorolac Tromethamine 30 MG/ML VIAL IVP SCH ×3 (05:17→18:14)
[2023-06-13 06:03] LABS: Anion Gap 10 mmol/L (10-20); BUN (Urea Nitrogen) 20 mg/dL (7.0-18.7); Calc. Creatinine Clearance 110 mL/min (70-130); Calcium 7.6 mg/dL (7.8-10.44); Carbon Dioxide 23 mmol/L (22-29); Chloride 105 mmol/L (98-107); Estimated GFR 73; Glucose 148 mg/dL (70-105); Potassium 3.8 mmol/L (3.5-5.1); Sodium 134 mmol/L (136-145)
[2023-06-13] MEDS: Ipratropium/Albuterol 3 ML NEB NEB SCH ×4 (06:15→23:55)
[2023-06-13] MEDS: Potassium Chloride 20 MEQ/100 ML PREMIX BAG IVPB PRN (06:23)
[2023-06-13] MEDS: Aspirin 325 MG TAB PO SCH (08:55)
[2023-06-13] MEDS: Polyethylene Glycol 3350 17 GM Packet PO SCH (08:55)
[2023-06-13 13:14] LABS: Hematocrit 27.7 % (36.0-47.0); Hemoglobin 8.6 g/dL (12.0-16.0); Platelet Count 228 10x3/uL (130-400)
[2023-06-13] MEDS: Insulin Glargine 30 UNITS/0.3 ML VIAL SC SCH (20:15)
[2023-06-13] MEDS: Atorvastatin Calcium 40 MG TAB PO SCH (20:15)
[2023-06-13] MEDS: HumaLOG 300 UNITS/3 ML VIAL SC PRN (20:18)
[2023-06-14 05:00] LABS: #Eosinphils 0.3 thou/uL (0.0-0.7); #Monocytes 1.1 thou/uL (0.11-0.59); #Neutrophils 7.3 thou/uL (1.40-6.50); %Basophils 0.2 % (0.0-1.0); %Eosinophils 2.7 % (0.0-10.0); %Lymphocytes 21.6 % (21.0-51.0); %Monocytes 9.4 % (0.0-10.0); %Neutrophils 65.6 % (42.0-75.0); Hematocrit 25.8 % (36.0-47.0); Mean Corpuscular Hemoglobin 27.9 pg (27.0-31.0); Mean Corpuscular Volume 89.9 fl (78.0-98.0); Mean Platelet Volume 10.7 fL (7.4-10.4); Platelet Count 247 10x3/uL (130-400); RBC Distribution Width 16.2 % (11.5-14.5); Red Blood Cell (RBC) Count 2.87 mill/uL (4.20-5.40); White Blood Cell (WBC) Count 11.2 10x3/uL (4.8-10.8)
[2023-06-14 05:22] LABS: Anion Gap 11 mmol/L (10-20); BUN (Urea Nitrogen) 19 mg/dL (7.0-18.7); Calc. Creatinine Clearance 112 mL/min (70-130); Calcium 7.8 mg/dL (7.8-10.44); Carbon Dioxide 24 mmol/L (22-29); Chloride 106 mmol/L (98-107); Estimated GFR 74; Glucose 119 mg/dL (70-105); Sodium 137 mmol/L (136-145)
[2023-06-14] MEDS: HYDROcodone/Acetaminophen 5/325 mg Tablet PO PRN ×4 (05:27→21:14)
[2023-06-14] MEDS: Ipratropium/Albuterol 3 ML NEB NEB SCH ×3 (07:30→18:09)
[2023-06-14] MEDS: Furosemide 40 MG TAB PO SCH (07:35)
[2023-06-14] MEDS: Polyethylene Glycol 3350 17 GM Packet PO SCH (08:23)
[2023-06-14] MEDS: Aspirin 325 MG TAB PO SCH (08:24)
[2023-06-14] MEDS: Guaifenesin DM 100-10/5 ML UDCUP PO PRN ×2 (08:24→22:21)
[2023-06-14] MEDS: DOBUTamine 500 mg/250 ml 250 ML IVPB SCH (08:25)
[2023-06-14] MEDS: HumaLOG 300 UNITS/3 ML VIAL SC PRN ×3 (11:57→20:16)
[2023-06-14] MEDS: Insulin Glargine 30 UNITS/0.3 ML VIAL SC SCH (20:14)
[2023-06-14] MEDS: Atorvastatin Calcium 40 MG TAB PO SCH (20:16)
[2023-06-15] MEDS: Ipratropium/Albuterol 3 ML NEB NEB SCH ×5 (00:17→21:56)
[2023-06-15] MEDS: HYDROcodone/Acetaminophen 5/325 mg Tablet PO PRN ×4 (03:00→20:40)
[2023-06-15 04:57] LABS: Hematocrit 25.1 % (36.0-47.0); Hemoglobin 7.6 g/dL (12.0-16.0); Platelet Count 303 10x3/uL (130-400)
[2023-06-15] MEDS ORDERED: Nitroglycerin 0.4 MG TAB (25 Tab Bottle) SL PRN (07:32)
[2023-06-15] MEDS ORDERED: Mineral Oil ENEMA PR PRN (07:32)
[2023-06-15] MEDS ORDERED: Artificial Tear Sol 15 ML BOT EA EYE PRN (07:32)
[2023-06-15] MEDS ORDERED: Dextrose 5% in Water 1,000 ML IV PRN (07:45)
[2023-06-15] MEDS ORDERED: Glucagon 1 MG/ML KIT SC PRN (07:45)
[2023-06-15] MEDS ORDERED: Dextrose 50% Abboject 50 ML SYRINGE SLOW IVP PRN (07:45)
[2023-06-15] MEDS: Potassium Chloride 20 MEQ TAB PO SCH (08:04)
[2023-06-15] MEDS: Aspirin 325 MG TAB PO SCH (08:04)
[2023-06-15] MEDS: Aspirin 325 mg Enteric Coated Tablet PO SCH (08:04)
[2023-06-15] MEDS: Furosemide 40 MG TAB PO SCH ×3 (08:08→20:40)
[2023-06-15] MEDS: Carvedilol 3.125 MG TAB PO SCH ×2 (08:08→20:40)
[2023-06-15] MEDS: Polyethylene Glycol 3350 17 GM Packet PO SCH (08:08)
[2023-06-15] MEDS: Guaifenesin DM 100-10/5 ML UDCUP PO PRN ×3 (08:08→20:40)
[2023-06-15] MEDS ORDERED: Metolazone 2.5 MG TAB PO SCH (08:30)
[2023-06-15] MEDS ORDERED: Famotidine 20 MG TAB PO SCH ×2 (09:00→21:00)
[2023-06-15 12:37] LABS: Glucose 155 mg/dL (70-105)
[2023-06-15 18:19] LABS: Glucose 140 mg/dL (70-105)
[2023-06-15] MEDS: Atorvastatin Calcium 40 MG TAB PO SCH (20:40)
[2023-06-15] MEDS: Insulin Glargine 30 UNITS/0.3 ML VIAL SC SCH (20:41)
[2023-06-15 23:39] LABS: Glucose 135 mg/dL (70-105)
[2023-06-16] MEDS: HYDROcodone/Acetaminophen 5/325 mg Tablet PO PRN ×3 (02:53→19:37)
[2023-06-16] MEDS: Bisacodyl 5 MG TAB PO PRN (02:54)
[2023-06-16] MEDS: DOBUTamine 500 mg/250 ml 250 ML IVPB SCH (03:08)
[2023-06-16 04:23] LABS: #Eosinphils 0.4 thou/uL (0.0-0.7); #Monocytes 1.2 thou/uL (0.11-0.59); #Neutrophils 6.7 thou/uL (1.40-6.50); %Basophils 0.3 % (0.0-1.0); %Eosinophils 3.5 % (0.0-10.0); %Lymphocytes 19.5 % (21.0-51.0); %Monocytes 11.7 % (0.0-10.0); %Neutrophils 64.1 % (42.0-75.0); Hematocrit 28.6 % (36.0-47.0); Mean Corpuscular HGB CONC 31.5 g/dL (32.0-36.0); Mean Corpuscular Hemoglobin 27.7 pg (27.0-31.0); Mean Platelet Volume 9.9 fL (7.4-10.4); Platelet Count 321 10x3/uL (130-400); RBC Distribution Width 16.1 % (11.5-14.5); Red Blood Cell (RBC) Count 3.25 mill/uL (4.20-5.40); White Blood Cell (WBC) Count 10.5 10x3/uL (4.8-10.8)
[2023-06-16] MEDS: Ondansetron PF 4 MG/2 ML Vial IVP PRN (04:35)
[2023-06-16 05:09] LABS: Anion Gap 12 mmol/L (10-20); BUN (Urea Nitrogen) 10 mg/dL (7.0-18.7); Calc. Creatinine Clearance 118 mL/min (70-130); Calcium 8.3 mg/dL (7.8-10.44); Carbon Dioxide 26 mmol/L (22-29); Chloride 101 mmol/L (98-107); Estimated GFR 78; Glucose 113 mg/dL (70-105); Potassium 3.9 mmol/L (3.5-5.1); Sodium 135 mmol/L (136-145)
[2023-06-16] MEDS: Ipratropium/Albuterol 3 ML NEB NEB SCH ×3 (07:32→19:53)
[2023-06-16 08:27] LABS: Glucose 123 mg/dL (70-105)
[2023-06-16] MEDS ORDERED: DOBUTamine 500 mg/250 ml 250 ML IVPB SCH (09:24)
[2023-06-16] MEDS: Polyethylene Glycol 3350 17 GM Packet PO SCH (09:25)
[2023-06-16] MEDS: Furosemide 40 MG TAB PO SCH ×2 (09:26→21:57)
[2023-06-16] MEDS: Potassium Chloride 20 MEQ TAB PO SCH (09:26)
[2023-06-16] MEDS: Aspirin 325 mg Enteric Coated Tablet PO SCH (09:26)
[2023-06-16] MEDS: Carvedilol 3.125 MG TAB PO SCH ×2 (09:26→21:57)
[2023-06-16] MEDS: Atorvastatin Calcium 40 MG TAB PO SCH (21:57)
[2023-06-16] MEDS: Insulin Glargine 30 UNITS/0.3 ML VIAL SC SCH (21:58)
[2023-06-16] MEDS ORDERED: traMADol HCl 50 MG TAB PO SCH (22:15)
[2023-06-16] MEDS ORDERED: Acetaminophen 500 MG TAB PO SCH (22:15)
[2023-06-17] MEDS: Ipratropium/Albuterol 3 ML NEB NEB SCH ×4 (01:40→21:49)
[2023-06-17 05:08] LABS: Hematocrit 30.5 % (36.0-47.0); Hemoglobin 9.4 g/dL (12.0-16.0); Platelet Count 341 10x3/uL (130-400)
[2023-06-17] MEDS: HYDROcodone/Acetaminophen 5/325 mg Tablet PO PRN ×3 (05:11→19:09)
[2023-06-17] MEDS: Potassium Chloride 20 MEQ TAB PO SCH (09:19)
[2023-06-17] MEDS: Aspirin 325 mg Enteric Coated Tablet PO SCH (09:19)
[2023-06-17] MEDS: Furosemide 40 MG TAB PO SCH ×2 (09:20→22:28)
[2023-06-17] MEDS: Lidocaine 4% Patch TD SCH (09:20)
[2023-06-17] MEDS: Carvedilol 3.125 MG TAB PO SCH ×2 (09:20→22:27)
[2023-06-17] MEDS: Polyethylene Glycol 3350 17 GM Packet PO SCH (09:25)
[2023-06-17] MEDS: Atorvastatin Calcium 40 MG TAB PO SCH (22:27)
[2023-06-17] MEDS: Insulin Glargine 30 UNITS/0.3 ML VIAL SC SCH (22:27)
[2023-06-17] MEDS ORDERED: Acetaminophen 500 MG TAB PO SCH (22:30)
[2023-06-17] MEDS ORDERED: traMADol HCl 50 MG TAB PO SCH (22:30)
[2023-06-17] MEDS ORDERED: Morphine 2 MG/ML VIAL SLOW IVP SCH (22:45)
[2023-06-17] MEDS ORDERED: Transdermal Patch Removal TOP SCH (22:45)
[2023-06-18] MEDS: Ipratropium/Albuterol 3 ML NEB NEB SCH ×4 (01:08→19:31)
[2023-06-18] MEDS ORDERED: Digoxin 0.5 MG/2 ML AMP SLOW IVP SCH (01:30)
[2023-06-18] MEDS ORDERED: dilTIAZem 25 MG/5 ML VIAL SLOW IVP SCH (01:30)
[2023-06-18] MEDS: dilTIAZem 125 MG, Admixture Fee 1 EACH in Sodium Chloride 0.9% 100 ML IVPB SCH (02:22)
[2023-06-18] MEDS: Potassium Chloride 20 MEQ TAB PO SCH (08:59)
[2023-06-18] MEDS: Carvedilol 3.125 MG TAB PO SCH (09:02)
[2023-06-18] MEDS: HYDROcodone/Acetaminophen 5/325 mg Tablet PO PRN ×2 (09:02→16:12)
[2023-06-18] MEDS: Bisacodyl 5 MG TAB PO PRN (09:03)
[2023-06-18] MEDS: Polyethylene Glycol 3350 17 GM Packet PO SCH (09:04)
[2023-06-18] MEDS: Furosemide 40 MG TAB PO SCH ×2 (09:04→21:44)
[2023-06-18] MEDS: Aspirin 325 mg Enteric Coated Tablet PO SCH (09:04)
[2023-06-18] MEDS: Lidocaine 4% Patch TD SCH (09:04)
[2023-06-18] MEDS ORDERED: Morphine 2 MG/ML VIAL SLOW IVP PRN (11:58)
[2023-06-18 12:10] LABS: #Eosinphils 0.3 thou/uL (0.0-0.7); #Monocytes 0.8 thou/uL (0.11-0.59); %Basophils 0.3 % (0.0-1.0); %Eosinophils 2.4 % (0.0-10.0); %Lymphocytes 19.5 % (21.0-51.0); %Monocytes 6.2 % (0.0-10.0); Hematocrit 31.1 % (36.0-47.0); Hemoglobin 9.6 g/dL (12.0-16.0); Mean Corpuscular HGB CONC 30.9 g/dL (32.0-36.0); Mean Corpuscular Hemoglobin 27.4 pg (27.0-31.0); Mean Corpuscular Volume 88.6 fl (78.0-98.0); Mean Platelet Volume 9.2 fL (7.4-10.4); Platelet Count 401 10x3/uL (130-400); RBC Distribution Width 16.2 % (11.5-14.5); Red Blood Cell (RBC) Count 3.51 mill/uL (4.20-5.40); White Blood Cell (WBC) Count 12.7 10x3/uL (4.8-10.8)
[2023-06-18 12:28] LABS: ALT (SGPT) 15 U/L (8-55); AST (SGOT) 21 U/L (5-34); Albumin 3.2 g/dL (3.5-5.0); Alkaline Phosphatase 159 U/L (40-110); Anion Gap 16 mmol/L (10-20); BUN (Urea Nitrogen) 13 mg/dL (7.0-18.7); Bilirubin, Total 0.5 mg/dL (0.2-1.2); Calc. Creatinine Clearance 102 mL/min (70-130); Calcium 8.6 mg/dL (7.8-10.44); Carbon Dioxide 27 mmol/L (22-29); Chloride 95 mmol/L (98-107); Estimated GFR 65; Globulin 3.5 g/dL (2.4-3.5); Glucose 142 mg/dL (70-105); Magnesium 1.7 mg/dL (1.6-2.6); Potassium 4.3 mmol/L (3.5-5.1); Protein, Total 6.7 g/dL (6.0-8.3); Sodium 134 mmol/L (136-145)
[2023-06-18] MEDS: Guaifenesin DM 100-10/5 ML UDCUP PO PRN (16:12)
[2023-06-18] MEDS: Ketorolac Tromethamine 30 MG/ML VIAL IVP SCH ×2 (18:28→23:36)
[2023-06-18] MEDS: Insulin Regular 300 UNITS/3 ML VIAL SC PRN (18:29)
[2023-06-18] MEDS ORDERED: Carvedilol 3.125 MG TAB PO SCH (21:00)
[2023-06-18] MEDS: K PO SCH (21:44)
[2023-06-18] MEDS: Atorvastatin Calcium 40 MG TAB PO SCH (21:44)
[2023-06-18] MEDS: Insulin Glargine 30 UNITS/0.3 ML VIAL SC SCH (21:46)
[2023-06-18] MEDS: Transdermal Patch Removal TOP SCH (21:47)
[2023-06-19] MEDS: Ipratropium/Albuterol 3 ML NEB NEB SCH ×4 (01:30→19:00)
[2023-06-19] MEDS: dilTIAZem 125 MG, Admixture Fee 1 EACH in Sodium Chloride 0.9% 100 ML IVPB SCH (01:45)
[2023-06-19 05:01] LABS: #Eosinphils 0.4 thou/uL (0.0-0.7); #Monocytes 0.9 thou/uL (0.11-0.59); #Neutrophils 7.7 thou/uL (1.40-6.50); %Basophils 0.3 % (0.0-1.0); %Eosinophils 3.4 % (0.0-10.0); %Lymphocytes 19.7 % (21.0-51.0); %Monocytes 8.2 % (0.0-10.0); %Neutrophils 67.6 % (42.0-75.0); Hematocrit 28.9 % (36.0-47.0); Hemoglobin 8.8 g/dL (12.0-16.0); Mean Corpuscular HGB CONC 30.4 g/dL (32.0-36.0); Mean Corpuscular Volume 88.7 fl (78.0-98.0); Mean Platelet Volume 9.5 fL (7.4-10.4); Platelet Count 351 10x3/uL (130-400); RBC Distribution Width 16.2 % (11.5-14.5); Red Blood Cell (RBC) Count 3.26 mill/uL (4.20-5.40); White Blood Cell (WBC) Count 11.4 10x3/uL (4.8-10.8)
[2023-06-19 05:29] LABS: Anion Gap 13 mmol/L (10-20); BUN (Urea Nitrogen) 18 mg/dL (7.0-18.7); Calc. Creatinine Clearance 73 mL/min (70-130); Calcium 8.4 mg/dL (7.8-10.44); Carbon Dioxide 28 mmol/L (22-29); Chloride 98 mmol/L (98-107); Estimated GFR 43; Glucose 121 mg/dL (70-105); Magnesium 1.8 mg/dL (1.6-2.6); Potassium 3.9 mmol/L (3.5-5.1); Sodium 135 mmol/L (136-145)
[2023-06-19] MEDS: Ketorolac Tromethamine 30 MG/ML VIAL IVP SCH (06:19)
[2023-06-19] MEDS: Aspirin 325 mg Enteric Coated Tablet PO SCH (09:41)
[2023-06-19] MEDS: Potassium Chloride 20 MEQ TAB PO SCH (09:41)
[2023-06-19] MEDS: Furosemide 40 MG TAB PO SCH ×2 (09:41→21:04)
[2023-06-19] MEDS: Polyethylene Glycol 3350 17 GM Packet PO SCH (09:41)
[2023-06-19] MEDS: K PO SCH ×2 (09:41→21:04)
[2023-06-19] MEDS: Lidocaine 4% Patch TD SCH (09:45)
[2023-06-19] MEDS: Guaifenesin DM 100-10/5 ML UDCUP PO PRN (12:15)
[2023-06-19] MEDS ORDERED: traMADol HCl 50 MG TAB PO PRN (13:19)
[2023-06-19] MEDS ORDERED: Magnesium 2 GM/50 ML(in water) 2 GM in Premix 1 BAG IVPB SCH (13:30)
[2023-06-19] MEDS ORDERED: Electrolyte Replacement Protocol 1 EACH FS SCH (13:30)
[2023-06-19] MEDS ORDERED: dilTIAZem 30 MG TAB PO SCH (13:45)
[2023-06-19] MEDS: Ondansetron PF 4 MG/2 ML Vial IVP PRN ×2 (15:42→21:05)
[2023-06-19] MEDS ORDERED: Gabapentin 100 MG CAP PO SCH (21:00)
[2023-06-19] MEDS: HYDROcodone/Acetaminophen 5/325 mg Tablet PO PRN (21:03)
[2023-06-19] MEDS: dilTIAZem 30 MG TAB PO SCH (21:04)
[2023-06-19] MEDS: Atorvastatin Calcium 40 MG TAB PO SCH (21:04)
[2023-06-19] MEDS: Insulin Glargine 30 UNITS/0.3 ML VIAL SC SCH (21:05)
[2023-06-19] MEDS: Insulin Regular 300 UNITS/3 ML VIAL SC PRN (21:06)
[2023-06-19] MEDS: Transdermal Patch Removal TOP SCH (21:08)
[2023-06-20 05:47] LABS: #Eosinphils 0.4 thou/uL (0.0-0.7); #Monocytes 0.9 thou/uL (0.11-0.59); #Neutrophils 6.7 thou/uL (1.40-6.50); %Basophils 0.3 % (0.0-1.0); %Eosinophils 3.3 % (0.0-10.0); %Lymphocytes 23.9 % (21.0-51.0); %Monocytes 8.4 % (0.0-10.0); %Neutrophils 63.3 % (42.0-75.0); Hematocrit 26.2 % (36.0-47.0); Hemoglobin 8.1 g/dL (12.0-16.0); Mean Corpuscular HGB CONC 30.9 g/dL (32.0-36.0); Mean Corpuscular Hemoglobin 27.6 pg (27.0-31.0); Mean Corpuscular Volume 89.4 fl (78.0-98.0); Mean Platelet Volume 9.6 fL (7.4-10.4); Platelet Count 354 10x3/uL (130-400); RBC Distribution Width 16.3 % (11.5-14.5); Red Blood Cell (RBC) Count 2.93 mill/uL (4.20-5.40); White Blood Cell (WBC) Count 10.6 10x3/uL (4.8-10.8)
[2023-06-20 06:12] LABS: Anion Gap 11 mmol/L (10-20); BUN (Urea Nitrogen) 19 mg/dL (7.0-18.7); Calc. Creatinine Clearance 84 mL/min (70-130); Calcium 8.4 mg/dL (7.8-10.44); Carbon Dioxide 31 mmol/L (22-29); Chloride 98 mmol/L (98-107); Estimated GFR 53; Glucose 131 mg/dL (70-105); Magnesium 2.3 mg/dL (1.6-2.6); Sodium 136 mmol/L (136-145)
[2023-06-20] MEDS: Ipratropium/Albuterol 3 ML NEB NEB SCH ×3 (08:31→14:53)
[2023-06-20] MEDS: dilTIAZem 30 MG TAB PO SCH ×3 (08:59→17:07)
[2023-06-20] MEDS: Polyethylene Glycol 3350 17 GM Packet PO SCH (08:59)
[2023-06-20] MEDS ORDERED: Aspirin 81 mg Enteric Coated Tablet PO SCH (09:00)
[2023-06-20] MEDS ORDERED: Carvedilol 6.25 MG TAB PO SCH (09:00)
[2023-06-20] MEDS: Potassium Chloride 20 MEQ TAB PO SCH (09:00)
[2023-06-20] MEDS ORDERED: Clopidogrel Bisulfate 75 MG TAB PO SCH (09:00)
[2023-06-20] MEDS: Furosemide 40 MG TAB PO SCH (09:00)
[2023-06-20] MEDS: Lidocaine 4% Patch TD SCH (09:01)
[2023-06-20 13:08] LABS: Actual Bicarbonate (HCO3a) 22.8 mEq/L (22-28); Analyzer IN Cardio OR; Carboxyhemoglobin (COHb) 0.4 gm% (0.0-3.0); Hematocrit-ABG 34 % (36.0-47.0); Hemoglobin (Hb) 11.5 g/dL (12.0-16.0); Potassium - ABG Lab 4.01 mmol/L (3.70-5.30); pH, Arterial 7.384 (7.35-7.45)
[2023-06-20 13:10] LABS: Actual Bicarbonate (HCO3a) 19.3 mEq/L (22-28); Analyzer IN Cardio OR; Base Excess (BEa) -6.5 mEq/L (-2.0 to +3.0); CO2 Tension 39.4 mmHg (35.0-45.0); Calcium, Ionized (arterial) 1.08 mmol/L (1.12-1.30); Carboxyhemoglobin (COHb) 0.3 gm% (0.0-3.0); Hematocrit-ABG 31 % (36.0-47.0); Hemoglobin (Hb) 10.5 g/dL (12.0-16.0); pH, Arterial 7.307 (7.35-7.45)
[2023-06-20 13:12] LABS: Actual Bicarbonate (HCO3a) 24.4 mEq/L (22-28); Analyzer IN Cardio OR; Base Excess (BEa) -2.2 mEq/L (-2.0 to +3.0); CO2 Tension 51.3 mmHg (35.0-45.0); Calcium, Ionized (arterial) 0.99 mmol/L (1.12-1.30); Hematocrit-ABG 24 % (36.0-47.0); Hemoglobin (Hb) 8.1 g/dL (12.0-16.0); Potassium - ABG Lab 4.16 mmol/L (3.70-5.30); pH, Arterial 7.295 (7.35-7.45)
[2023-06-20 13:13] LABS: Actual Bicarbonate (HCO3a) 24.7 mEq/L (22-28); Analyzer IN Cardio OR; Base Excess (BEa) -1.4 mEq/L (-2.0 to +3.0); CO2 Tension 48.5 mmHg (35.0-45.0); Calcium, Ionized (arterial) 1.28 mmol/L (1.12-1.30); Carboxyhemoglobin (COHb) 0.6 gm% (0.0-3.0); Hematocrit-ABG 23 % (36.0-47.0); Hemoglobin (Hb) 7.9 g/dL (12.0-16.0); O2 Tension (PaO2), arterial 350.9 mmHg (80.0-100.0); Potassium - ABG Lab 3.83 mmol/L (3.70-5.30); pH, Arterial 7.324 (7.35-7.45)
[2023-06-20 13:13] LABS: Actual Bicarbonate (HCO3a) 24.3 mEq/L (22-28); Analyzer IN Cardio OR; Base Excess (BEa) -2.5 mEq/L (-2.0 to +3.0); CO2 Tension 52.9 mmHg (35.0-45.0); Carboxyhemoglobin (COHb) 0.6 gm% (0.0-3.0); Hematocrit-ABG 24 % (36.0-47.0); O2 Tension (PaO2), arterial 334.9 mmHg (80.0-100.0); Potassium - ABG Lab 3.89 mmol/L (3.70-5.30)
[2023-06-20 13:14] LABS: Actual Bicarbonate (HCO3a) 21.2 mEq/L (22-28); Analyzer IN Cardio OR; Base Excess (BEa) -4.7 mEq/L (-2.0 to +3.0); Calcium, Ionized (arterial) 1.12 mmol/L (1.12-1.30); Carboxyhemoglobin (COHb) 0.3 gm% (0.0-3.0); Hematocrit-ABG 28 % (36.0-47.0); Hemoglobin (Hb) 9.4 g/dL (12.0-16.0); O2 Tension (PaO2), arterial 154.9 mmHg (80.0-100.0); Potassium - ABG Lab 3.49 mmol/L (3.70-5.30); pH, Arterial 7.311 (7.35-7.45)
[2023-06-20 13:14] LABS: Actual Bicarbonate (HCO3a) 22.4 mEq/L (22-28); Analyzer IN Cardio OR; Base Excess (BEa) -4.6 mEq/L (-2.0 to +3.0); CO2 Tension 52.2 mmHg (35.0-45.0); Calcium, Ionized (arterial) 1.15 mmol/L (1.12-1.30); Carboxyhemoglobin (COHb) 0.6 gm% (0.0-3.0); Hematocrit-ABG 22 % (36.0-47.0); Hemoglobin (Hb) 7.4 g/dL (12.0-16.0); O2 Tension (PaO2), arterial 137.8 mmHg (80.0-100.0); Potassium - ABG Lab 3.41 mmol/L (3.70-5.30)
[2023-06-20 13:16] LABS: Puncture Site Arterial Line
[2023-06-20 13:17] LABS: Puncture Site Arterial Line
[2023-06-20 13:18] LABS: Puncture Site Arterial Line
[2023-06-20 13:18] LABS: Puncture Site Arterial Line
[2023-06-20 13:19] LABS: Puncture Site Arterial Line
[2023-06-20 13:19] LABS: Puncture Site Arterial Line
[2023-06-20 13:20] LABS: Puncture Site Arterial Line
[2023-06-20 15:57] VITALS: BP 104/59; TEMP 98.7
[2023-06-20] MEDS: HYDROcodone/Acetaminophen 5/325 mg Tablet PO PRN (17:07)
== END 2023-06-20 18:15 | disposition home or self-care (01) | DRG 234 ==
LOC: ERS 03:59 → ERHOLD 06:49 → 2NO 16:06 → CCU 06-10 08:27 → 2NO 06-15 11:56
PROVIDERS: ADMIT Internal Medicine; ATTEND Family Medicine
PROC: 4A023N7 Measurement of Cardiac Sampling and Pressure, Left Heart, Percutaneous Approach (ICD-10-PCS; principal; 2023-06-06)
PROC: B2111ZZ Fluoroscopy of Multiple Coronary Arteries using Low Osmolar Contrast (ICD-10-PCS; 2023-06-06)
PROC: B2151ZZ Fluoroscopy of Left Heart using Low Osmolar Contrast (ICD-10-PCS; 2023-06-06)
PROC: 5A09357 Assistance with Respiratory Ventilation, Less than 24 Consecutive Hours, Continuous Positive Airway Pressure (ICD-10-PCS; 2023-06-07)
PROC: 02100Z9 Bypass Coronary Artery, One Artery from Left Internal Mammary, Open Approach (ICD-10-PCS; 2023-06-10)
PROC: 021209W Bypass Coronary Artery, Three Arteries from Aorta with Autologous Venous Tissue, Open Approach (ICD-10-PCS; 2023-06-10)
PROC: 06BQ3ZZ Excision of Left Saphenous Vein, Percutaneous Approach (ICD-10-PCS; 2023-06-10)
PROC: 5A1221Z Performance of Cardiac Output, Continuous (ICD-10-PCS; 2023-06-10)
PROC: 02L70CK Occlusion of Left Atrial Appendage with Extraluminal Device, Open Approach (ICD-10-PCS; 2023-06-10)
PROC: 30233J1 Transfusion of Nonautologous Serum Albumin into Peripheral Vein, Percutaneous Approach (ICD-10-PCS; 2023-06-10)
PROC: 4A133R1 Monitoring of Arterial Saturation, Peripheral, Percutaneous Approach (ICD-10-PCS; 2023-06-10)
PROC: 30233N1 Transfusion of Nonautologous Red Blood Cells into Peripheral Vein, Percutaneous Approach (ICD-10-PCS; 2023-06-13)
DX: I21.4 Non-ST elevation (NSTEMI) myocardial infarction (principal); T82.855A Stenosis of coronary artery stent, initial encounter; I50.42 Chronic combined systolic (congestive) and diastolic (congestive) heart failure; D62 Acute posthemorrhagic anemia; E87.1 Hypo-osmolality and hyponatremia; N17.9 Acute kidney failure, unspecified; I48.92 Unspecified atrial flutter; I25.10 Atherosclerotic heart disease of native coronary artery without angina pectoris; I11.0 Hypertensive heart disease with heart failure; G43.909 Migraine, unspecified, not intractable, without status migrainosus; J44.9 Chronic obstructive pulmonary disease, unspecified; F41.9 Anxiety disorder, unspecified; F32.A Depression, unspecified; F17.210 Nicotine dependence, cigarettes, uncomplicated; I25.5 Ischemic cardiomyopathy; E66.01 Morbid (severe) obesity due to excess calories; M54.9 Dorsalgia, unspecified; M25.559 Pain in unspecified hip; F12.929 Cannabis use, unspecified with intoxication, unspecified; K21.9 Gastro-esophageal reflux disease without esophagitis; D72.829 Elevated white blood cell count, unspecified; E11.51 Type 2 diabetes mellitus with diabetic peripheral angiopathy without gangrene; I48.91 Unspecified atrial fibrillation; Z88.2 Allergy status to sulfonamides; Z79.82 Long term (current) use of aspirin; Z79.899 Other long term (current) drug therapy; I25.2 Old myocardial infarction; Z95.5 Presence of coronary angioplasty implant and graft; Z86.73 Personal history of transient ischemic attack (TIA), and cerebral infarction without residual deficits; Z98.890 Other specified postprocedural states; Z98.51 Tubal ligation status; Z79.4 Long term (current) use of insulin; Z95.810 Presence of automatic (implantable) cardiac defibrillator; Z68.38 Body mass index [BMI] 38.0-38.9, adult
CPT/HCPCS: 36415; 36416; 36430; 71045; 80048; 80053; 80061; 82805; 82947; 83690; 83735; 83880; 84484; 85014; 85018; 85025; 85049; 85610; 85730; 86850; 86900; 86901; 93005; 93010; 93306; 93458; 93798; 94002; 94640; 96372; 96374; 97139; 99152; A4311; C1713; C1751; C1760; C1769; C1894; J0153; J1160; J1250; J1642; J1644; J1650; J1815; J1885; J2001; J2150; J2250; J2260; J2272; J2405; J2440; J2704; J2720; J3010; J3370; J3475; J3480; J3490; J7050; J7120; J7620; P9016; P9045; S0017; S0028

== ENCOUNTER 2023-06-25 19:30 | Inpatient (IN) | payer OTHER, SELFPAY ==
[2023-06-25 20:23] LABS: #Eosinphils 0.3 thou/uL (0.0-0.7); #Monocytes 0.6 thou/uL (0.11-0.59); #Neutrophils 8.7 thou/uL (1.40-6.50); %Basophils 0.3 % (0.0-1.0); %Eosinophils 2.5 % (0.0-10.0); %Lymphocytes 16.5 % (21.0-51.0); %Monocytes 5.3 % (0.0-10.0); %Neutrophils 75.1 % (42.0-75.0); Hematocrit 29.2 % (36.0-47.0); Hemoglobin 9.1 g/dL (12.0-16.0); Mean Corpuscular HGB CONC 31.2 g/dL (32.0-36.0); Mean Corpuscular Hemoglobin 27.4 pg (27.0-31.0); Mean Platelet Volume 9.5 fL (7.4-10.4); Platelet Count 527 10x3/uL (130-400); RBC Distribution Width 15.9 % (11.5-14.5); Red Blood Cell (RBC) Count 3.32 mill/uL (4.20-5.40); White Blood Cell (WBC) Count 11.6 10x3/uL (4.8-10.8)
[2023-06-25] MEDS ORDERED: dilTIAZem 25 MG/5 ML VIAL ONE (20:26)
[2023-06-25] MEDS ORDERED: Furosemide 40 MG/4 ML VIAL ONE (20:26)
[2023-06-25] MEDS ORDERED: dilTIAZem 125 MG/25 ML SDV ONE (20:27)
[2023-06-25 20:37] LABS: INR-International Normal Ratio 1.1; Prothrombin Time 14.5 sec (12.0-14.7)
[2023-06-25 20:46] LABS: ALT (SGPT) 11 U/L (8-55); AST (SGOT) 8 U/L (5-34); Albumin 3.6 g/dL (3.5-5.0); Alkaline Phosphatase 137 U/L (40-110); Anion Gap 17 mmol/L (10-20); BUN (Urea Nitrogen) 18 mg/dL (7.0-18.7); Bilirubin, Total 0.5 mg/dL (0.2-1.2); Calc. Creatinine Clearance 0 mL/min (70-130); Calcium 8.9 mg/dL (7.8-10.44); Carbon Dioxide 25 mmol/L (22-29); Chloride 96 mmol/L (98-107); Estimated GFR 58; Globulin 3.5 g/dL (2.4-3.5); Glucose 230 mg/dL (70-105); Potassium 3.4 mmol/L (3.5-5.1); Protein, Total 7.1 g/dL (6.0-8.3); Sodium 135 mmol/L (136-145)
[2023-06-25] MEDS ORDERED: Morphine 4 MG/ML VIAL ONE (20:46)
[2023-06-25 20:49] LABS: Troponin I 0.161 ng/mL (< 0.028)
[2023-06-25] MEDS ORDERED: fentaNYL 50 mcg/mL 1 mL Vial ONE (20:52)
[2023-06-25] MEDS ORDERED: traMADol HCl 50 MG TAB ONE (22:45)
[2023-06-25 23:45] LABS: Troponin I 0.177 ng/mL (< 0.028)
[2023-06-25] MEDS ORDERED: Simethicone Chewable 80 MG TAB PO SCH (23:45)
[2023-06-26] MEDS ORDERED: HumaLOG 300 UNITS/3 ML VIAL SC PRN ×2 (02:22)
[2023-06-26] MEDS ORDERED: Dextrose 5% in Water 1,000 ML IV PRN (02:22)
[2023-06-26] MEDS ORDERED: Glucagon 1 MG/ML KIT IM PRN (02:22)
[2023-06-26] MEDS ORDERED: Dextrose 50% Abboject 50 ML SYRINGE SLOW IVP PRN (02:22)
[2023-06-26 02:44] LABS: Hemoglobin A1c 8.2 % (4.0-6.0)
[2023-06-26 03:01] LABS: Troponin I 0.164 ng/mL (< 0.028)
[2023-06-26] MEDS ORDERED: traMADol HCl 50 MG TAB ONE (04:45)
[2023-06-26] MEDS: traMADol HCl 50 MG TAB PO PRN ×3 (04:50→20:10)
[2023-06-26] MEDS ORDERED: dilTIAZem 125 MG in Sodium Chloride 0.9% 100 ML IVPB SCH (07:45)
[2023-06-26] MEDS ORDERED: Clopidogrel Bisulfate 75 MG TAB ONE (08:07)
[2023-06-26] MEDS ORDERED: Aspirin 81 mg Enteric Coated Tablet ONE (08:07)
[2023-06-26] MEDS ORDERED: Furosemide 40 MG TAB ONE (08:07)
[2023-06-26] MEDS ORDERED: Famotidine 20 MG TAB ONE (08:08)
[2023-06-26] MEDS ORDERED: Potassium Chloride 20 MEQ TAB ONE (08:08)
[2023-06-26] MEDS ORDERED: Carvedilol 6.25 MG TAB ONE (08:08)
[2023-06-26] MEDS ORDERED: dilTIAZem 30 MG TAB PO SCH (08:39)
[2023-06-26] MEDS: Aspirin 81 mg Enteric Coated Tablet PO SCH (08:47)
[2023-06-26] MEDS: Famotidine 20 MG TAB PO SCH ×2 (08:48→20:11)
[2023-06-26] MEDS: Carvedilol 6.25 MG TAB PO SCH ×2 (08:48→20:11)
[2023-06-26] MEDS: Clopidogrel Bisulfate 75 MG TAB PO SCH (08:48)
[2023-06-26] MEDS ORDERED: BIOTIN 10 MG PO SCH (09:00)
[2023-06-26] MEDS ORDERED: Furosemide 40 MG TAB PO SCH (09:00)
[2023-06-26] MEDS ORDERED: Iopamidol 370 76% 100 ML VIAL ONE (09:44)
[2023-06-26] MEDS: Potassium Chloride 20 MEQ TAB PO SCH (10:17)
[2023-06-26] MEDS: Empagliflozin 25 MG TAB PO SCH (10:23)
[2023-06-26] MEDS: Spironolactone 25 MG TAB PO SCH (10:23)
[2023-06-26] MEDS ORDERED: Morphine 2 MG/ML VIAL SLOW IVP PRN (11:36)
[2023-06-26] MEDS: dilTIAZem 30 MG TAB PO SCH ×3 (11:44→20:11)
[2023-06-26] MEDS ORDERED: Simethicone Chewable 80 MG TAB PO PRN (11:47)
[2023-06-26] MEDS ORDERED: Ipratropium/Albuterol 3 ML NEB NEB PRN (11:50)
[2023-06-26] MEDS ORDERED: Acetaminophen 325 MG TAB PO PRN (13:09)
[2023-06-26 13:24] VITALS: BMI 35.0
[2023-06-26] MEDS ORDERED: Amiodarone 200 MG TAB PO SCH (14:45)
[2023-06-26] MEDS: Amiodarone 200 MG TAB PO SCH (20:11)
[2023-06-26] MEDS ORDERED: Insulin Glargine 30 UNITS/0.3 ML VIAL SC SCH (21:00)
[2023-06-26] MEDS ORDERED: Gabapentin 100 MG CAP PO SCH (21:00)
[2023-06-26] MEDS ORDERED: Atorvastatin Calcium 40 MG TAB PO SCH (21:00)
[2023-06-27 07:36] LABS: #Eosinphils 0.3 thou/uL (0.0-0.7); #Monocytes 0.7 thou/uL (0.11-0.59); #Neutrophils 8.1 thou/uL (1.40-6.50); %Basophils 0.4 % (0.0-1.0); %Eosinophils 2.9 % (0.0-10.0); %Lymphocytes 18.2 % (21.0-51.0); %Monocytes 6.3 % (0.0-10.0); %Neutrophils 71.8 % (42.0-75.0); Hematocrit 27.6 % (36.0-47.0); Hemoglobin 8.5 g/dL (12.0-16.0); Mean Corpuscular HGB CONC 30.8 g/dL (32.0-36.0); Mean Corpuscular Hemoglobin 27.2 pg (27.0-31.0); Mean Corpuscular Volume 88.5 fl (78.0-98.0); Mean Platelet Volume 9.2 fL (7.4-10.4); Platelet Count 542 10x3/uL (130-400); RBC Distribution Width 15.8 % (11.5-14.5); Red Blood Cell (RBC) Count 3.12 mill/uL (4.20-5.40); White Blood Cell (WBC) Count 11.3 10x3/uL (4.8-10.8)
[2023-06-27 07:56] LABS: Anion Gap 15 mmol/L (10-20); BUN (Urea Nitrogen) 15 mg/dL (7.0-18.7); Calc. Creatinine Clearance 114 mL/min (70-130); Calcium 9.1 mg/dL (7.8-10.44); Carbon Dioxide 26 mmol/L (22-29); Chloride 98 mmol/L (98-107); Estimated GFR 77; Glucose 111 mg/dL (70-105); Potassium 4.1 mmol/L (3.5-5.1); Sodium 135 mmol/L (136-145)
[2023-06-27] MEDS: Clopidogrel Bisulfate 75 MG TAB PO SCH (08:02)
[2023-06-27] MEDS: Amiodarone 200 MG TAB PO SCH (08:03)
[2023-06-27] MEDS: Aspirin 81 mg Enteric Coated Tablet PO SCH (08:03)
[2023-06-27] MEDS: Potassium Chloride 20 MEQ TAB PO SCH (08:04)
[2023-06-27] MEDS: dilTIAZem 30 MG TAB PO SCH ×2 (08:04→11:18)
[2023-06-27] MEDS: Spironolactone 25 MG TAB PO SCH (08:05)
[2023-06-27] MEDS: Famotidine 20 MG TAB PO SCH (08:05)
[2023-06-27] MEDS: Carvedilol 6.25 MG TAB PO SCH (08:06)
[2023-06-27] MEDS: Empagliflozin 25 MG TAB PO SCH (08:06)
[2023-06-27] MEDS: traMADol HCl 50 MG TAB PO PRN (08:38)
[2023-06-27] MEDS ORDERED: Bumetanide 1 MG TAB PO SCH (09:00)
[2023-06-27 13:15] VITALS: TEMP 98.5
[2023-06-27 13:29] VITALS: BP 122/69
[2023-06-28] MEDS ORDERED: Amiodarone 200 MG TAB PO SCH (09:00)
[2023-07-01] MEDS ORDERED: Ergocalciferol 1.25 MG(50,000 UNITS) CAP PO SCH (09:00)
== END 2023-06-27 16:05 | disposition home or self-care (01) | DRG 281 ==
LOC: ERS 19:30 → ERHOLD 22:54 → CCU 06-26 10:56
PROVIDERS: ADMIT Student in an Organized Health Care Education/Training Program; ATTEND Internal Medicine
DX: I48.0 Paroxysmal atrial fibrillation (principal); I21.A1 Myocardial infarction type 2; I13.0 Hypertensive heart and chronic kidney disease with heart failure and stage 1 through stage 4 chronic kidney disease, or unspecified chronic kidney disease; I50.42 Chronic combined systolic (congestive) and diastolic (congestive) heart failure; I48.92 Unspecified atrial flutter; I25.10 Atherosclerotic heart disease of native coronary artery without angina pectoris; G43.909 Migraine, unspecified, not intractable, without status migrainosus; F17.210 Nicotine dependence, cigarettes, uncomplicated; N18.9 Chronic kidney disease, unspecified; E87.6 Hypokalemia; D63.1 Anemia in chronic kidney disease; E11.22 Type 2 diabetes mellitus with diabetic chronic kidney disease; J44.9 Chronic obstructive pulmonary disease, unspecified; E11.51 Type 2 diabetes mellitus with diabetic peripheral angiopathy without gangrene; Z88.2 Allergy status to sulfonamides; Z95.1 Presence of aortocoronary bypass graft; Z79.899 Other long term (current) drug therapy; Z79.4 Long term (current) use of insulin; Z71.6 Tobacco abuse counseling; Z79.82 Long term (current) use of aspirin; I25.2 Old myocardial infarction; Z86.73 Personal history of transient ischemic attack (TIA), and cerebral infarction without residual deficits; Z95.5 Presence of coronary angioplasty implant and graft; Z95.810 Presence of automatic (implantable) cardiac defibrillator; Z98.890 Other specified postprocedural states; Z82.49 Family history of ischemic heart disease and other diseases of the circulatory system
CPT/HCPCS: 36415; 36416; 71045; 71275; 80048; 80053; 83036; 83735; 83880; 84443; 84484; 85025; 85610; 85730; 93005; 93798; 94760; 96365; 96366; 96375; J1815; J1940; J2270; J3010; Q9967

== ENCOUNTER 2024-06-17 05:24 | Observation (INO) | payer OTHER ==
[2024-06-17 06:53] LABS: #Basophils 0.03 10x3/uL (0.0-0.2); %Basophils 0.3 % (0.0-1.0); %Eosinophils 1.4 % (0.0-10.0); %Lymphocytes 23.5 % (21.0-51.0); %Monocytes 5.9 % (0.0-10.0); %Neutrophils 68.5 % (42.0-75.0); Hematocrit 38.4 % (36.0-47.0); Hemoglobin 13.1 g/dL (12.0-16.0); Mean Corpuscular HGB CONC 34.1 g/dL (32.0-36.0); Mean Corpuscular Hemoglobin 30.3 pg (27.0-31.0); Mean Corpuscular Volume 88.9 fL (78.0-98.0); Mean Platelet Volume 10.1 fL (7.4-10.4); Platelet Count 289 10x3/uL (130-400); RBC Distribution Width 12.9 % (11.5-14.5); Red Blood Cell (RBC) Count 4.32 mill/uL (4.20-5.40)
[2024-06-17 07:18] LABS: BHCG - Serum Negative (NEGATIVE); Pregs Control Background? CLEAR/WHITE (CLR/WHITE); Pregs Control Bar Appear? YES (CONTROL BAR)
[2024-06-17] MEDS ORDERED: Furosemide 40 MG (4 mL) VIAL ONE (07:18)
[2024-06-17] MEDS ORDERED: Nitroglycerin 2% Ointment 1 INCH/1 GM Packet ONE (07:18)
[2024-06-17 07:25] LABS: ALT (SGPT) 19 U/L (8-55); AST (SGOT) 13 U/L (5-34); Albumin 3.5 g/dL (3.5-5.0); Alkaline Phosphatase 110 U/L (40-110); Anion Gap 15 mmol/L (10-20); BUN (Urea Nitrogen) 18 mg/dL (7.0-18.7); Bilirubin, Total 0.4 mg/dL (0.2-1.2); Calc. Creatinine Clearance 0 mL/min (70-130); Calcium 8.7 mg/dL (7.8-10.44); Carbon Dioxide 24 mmol/L (22-29); Chloride 95 mmol/L (98-107); Estimated GFR 47; Globulin 3.4 g/dL (2.4-3.5); Glucose 422 mg/dL (70-105); Magnesium 1.6 mg/dL (1.6-2.6); Potassium 3.2 mmol/L (3.5-5.1); Protein, Total 6.9 g/dL (6.0-8.3); Sodium 131 mmol/L (136-145); Troponin I Less than 0.010 ng/mL (< 0.028)
[2024-06-17] MEDS ORDERED: Potassium Chloride 20 MEQ TAB ONE (07:59)
[2024-06-17] MEDS ORDERED: Aspirin 81 mg Enteric Coated Tablet ONE (07:59)
[2024-06-17 09:21] VITALS: BMI 41.5
[2024-06-17] MEDS ORDERED: Loperamide HCl 2 MG CAP PO PRN (10:15)
[2024-06-17] MEDS ORDERED: Acetaminophen 325 MG TAB PO PRN (10:15)
[2024-06-17] MEDS ORDERED: Dextrose 50% Abboject 50 ML SYRINGE SLOW IVP PRN ×2 (10:27→10:30)
[2024-06-17] MEDS ORDERED: Dextrose 5% in Water 1,000 ML IV PRN ×2 (10:27→10:30)
[2024-06-17] MEDS ORDERED: Glucagon 1 MG/ML KIT IM PRN ×2 (10:27→10:30)
[2024-06-17 10:34] LABS: Troponin I Less than 0.010 ng/mL (< 0.028)
[2024-06-17] MEDS ORDERED: Insulin Lispro 100 UNIT/ML 10 ML VIAL ONE (11:09)
[2024-06-17] MEDS: Insulin Lispro 100 UNIT/ML 10 ML VIAL SC PRN (11:13)
[2024-06-17 13:01] LABS: Troponin I Less than 0.010 ng/mL (< 0.028)
[2024-06-17] MEDS: Zolpidem Tartrate 5 MG TAB PO SCH (14:03)
[2024-06-17] MEDS: Gabapentin 300 MG CAP PO SCH (20:58)
[2024-06-17] MEDS: Atorvastatin Calcium 40 MG TAB PO SCH (20:58)
[2024-06-17] MEDS: dilTIAZem 30 MG TAB PO SCH (20:58)
[2024-06-17] MEDS: Carvedilol 6.25 MG TAB PO SCH (20:59)
[2024-06-17] MEDS: Insulin Glargine 30 UNITS/0.3 ML VIAL SC SCH (20:59)
[2024-06-17] MEDS: Melatonin 3 MG TAB PO PRN (21:34)
[2024-06-18 04:55] LABS: #Basophils 0.05 10x3/uL (0.0-0.2); %Basophils 0.5 % (0.0-1.0); %Lymphocytes 34.9 % (21.0-51.0); %Monocytes 6.2 % (0.0-10.0); %Neutrophils 56.2 % (42.0-75.0); Hematocrit 40.7 % (36.0-47.0); Hemoglobin 13.7 g/dL (12.0-16.0); Mean Corpuscular HGB CONC 33.7 g/dL (32.0-36.0); Mean Corpuscular Hemoglobin 30.5 pg (27.0-31.0); Mean Corpuscular Volume 90.6 fL (78.0-98.0); Mean Platelet Volume 10.3 fL (7.4-10.4); Platelet Count 275 10x3/uL (130-400); RBC Distribution Width 12.9 % (11.5-14.5); Red Blood Cell (RBC) Count 4.49 mill/uL (4.20-5.40)
[2024-06-18 05:07] LABS: Anion Gap 12 mmol/L (10-20); BUN (Urea Nitrogen) 16 mg/dL (7.0-18.7); Calc. Creatinine Clearance 131 mL/min (70-130); Calcium 8.7 mg/dL (7.8-10.44); Carbon Dioxide 26 mmol/L (22-29); Chloride 99 mmol/L (98-107); Estimated GFR 84; Glucose 244 mg/dL (70-105); Potassium 3.2 mmol/L (3.5-5.1); Sodium 134 mmol/L (136-145)
[2024-06-18] MEDS ORDERED: Non-Formulary Item 1 EACH (Insulin Degludec [Tresiba Flextouch U-100] 100 UNIT/ML Insuln. SC SCH (09:00)
[2024-06-18] MEDS: Bumetanide 1 MG TAB PO SCH (09:11)
[2024-06-18] MEDS: Spironolactone 25 MG TAB PO SCH (09:12)
[2024-06-18] MEDS: Clopidogrel Bisulfate 75 MG TAB PO SCH (09:13)
[2024-06-18] MEDS: Dapagliflozin Propanediol 10 MG TAB PO SCH (09:14)
[2024-06-18] MEDS: Enoxaparin 40 MG (0.4 mL) SYRINGE SC SCH (09:19)
[2024-06-18] MEDS: Acetaminophen/Codeine 30-300mg Tablet PO PRN (13:20)
[2024-06-18] MEDS: Potassium Chloride 20 MEQ TAB PO SCH (14:21)
[2024-06-18] MEDS: FLU (Fluarix Triv) TS24-25(6MOS UP)/PF 45 MCG/0.5 ML Syringe IM ONE ×2 (14:30→15:00)
[2024-06-18 15:17] VITALS: BP 129/88; TEMP 97.5
[2024-06-19] MEDS ORDERED: FLU (Fluarix Triv) TS24-25(6MOS UP)/PF 45 MCG/0.5 ML Syringe IM ONE (09:00)
== END 2024-06-18 18:20 | disposition home or self-care (01) ==
LOC: ERS 05:24 → ERHOLD 07:47 → PCU 11:48
PROVIDERS: ADMIT Family Medicine; ATTEND Family Medicine
DX: R06.02 Shortness of breath (principal); G47.00 Insomnia, unspecified; R07.2 Precordial pain; F41.9 Anxiety disorder, unspecified; I11.0 Hypertensive heart disease with heart failure; E66.01 Morbid (severe) obesity due to excess calories; E78.5 Hyperlipidemia, unspecified; E11.9 Type 2 diabetes mellitus without complications; J45.909 Unspecified asthma, uncomplicated; N17.9 Acute kidney failure, unspecified; F12.90 Cannabis use, unspecified, uncomplicated; Z79.82 Long term (current) use of aspirin; Z88.2 Allergy status to sulfonamides; Z79.899 Other long term (current) drug therapy; Z79.02 Long term (current) use of antithrombotics/antiplatelets; Z79.4 Long term (current) use of insulin
CPT/HCPCS: 36415; 36416; 71045; 80048; 80053; 83735; 83880; 84484; 84703; 85025; 90656; 93005; 96372; 96374; G0378; J1650; J1815; J1940